=== PATIENT | female | born 1940 | race Caucasian/White ===

== ENCOUNTER 2023-02-07 09:43 | Inpatient (IN) ==
[2023-02-07] MEDS ORDERED: SODIUM CHLORIDE 0.9% 500 ML IV ONE (10:06)
[2023-02-07] MEDS ORDERED: ONDANSETRON INJ 2 MG/ML 2 ML VIAL IV STA (10:07)
--- NOTE | 2023-02-07 10:09 | Emergency Department Note ---
Impression & Plan GI bleed ED Provider Note Name: FLORINDA YOO Age: 82 Sex: Female Arrives Via: Walk-In Informant: Patient and daughter ED Provider: Benedict Sampson MD Chief Complaint: Bloody stools Impression: As per impressions above Medical Decision Making: Pleasant 82-year-old female with a history of Whipple surgery 13 years ago arrives for evaluation of black/bloody stools this morning. She does note a history of gastric ulcers. Symptoms are associated with stomach feeling settled and some dry heaving earlier. She has a soft nontender abdomen. Laboratory workup remarkable for mildly elevated white blood cell count and not significantly anemic at this time. Given elevated white count a CT abdomen pelvis was obtained which is unremarkable. Laboratory workup otherwise is benign. Given acute GI bleed in 82-year-old female I think hospitalization is reasonable especially given known ulcerative disease previously. She was given some IV Protonix and hospitalist consulted for further management. Triage/Nursing Notes reviewed by Me Differential:Diverticulosis, AVM, coagulopathy, colitis, inflammatory bowel disease, malignancy, Luci-Denney tear, esophagitis, peptic ulcer disease, variceal bleed, gastritis, epistaxis, fissure, hemorrhoids, as well as other pathologies. Vital Signs: reviewed and remarkable for mild tachy Interventions: Normal Saline bolus 1 L IV, Zofran 4 mg IV, Protonix 80 mg IV Labs:ED labs Reviewed by me and remarkable for elevated wbc Imaging:CT abdomen pelvis with IV contrast as per my interpretation no acute abnormalities including no evidence of obstruction, free air, abscess nor diverticulitis. Confirmed by radiologist see the report for full. Consults:[facility] Hospitalist Plan: Disposition:Hospitalization Condition: Good History of Present Illness: 82-year-old female arrives for evaluation of abdominal pain. Patient notes increasing abdominal pain throughout the morning. She went to the bathroom and noticed black/bloody/tarry stools. Notes hyperactive bowels. Mild associated nausea and did have an episode of dry heaving earlier. Denies any current abdominal or back pain and just notes that her stomach feels unsettled. Denies any chest pain, fevers, chills, shortness of breath, leg swelling, rashes, other bleeding/bruising, headache, neck pain or other concerning signs or symptoms. 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 She notes a history of periodic GI bleeds and this is somewhat similar. Does not take any blood thinners nor aspirin. She does take Pepcid daily. Past Medical History:See Below Home Medications:See Below Allergies: Aspirin and morphine Vitals:Blood Pressure: 117/71, Pulse 104, RR 20, T 36.4C, O2 94% on RA Physical Exam: GENERAL: Patient is tired/mildly dehydrated appearing and in minimal distress. RESPIRATORY: No dyspnea. Clear to auscultation and equal bilaterally. CARDIOVASCULAR: Regular rate and rhythm.No murmur appreciated. GASTROINTESTINAL: Abdomen soft, non-tender, no peritonitis. EXTREMITIES: Normal motion all extremities, no cyanosis, no edema. NEUROLOGIC: Alert and oriented. No focal neurologic deficits appreciated SKIN: No rash, no jaundice, no diaphoresis. PSYCH: Appropriate GCS: 15 ED Course: Times/Reassessments: Patient does seem to be feeling better after some IV fluids and Zofran. Agreeable to hospitalization Benedict Sampson MD Past Med/Surg History Medical History Hypertension Hypothyroidism Surgical History No pertinent past surgical history Social History Smoking Status: Never smoker Second Hand Exposure: No; Do You Dip or Chew Tobacco: No; Tobacco Cessation Education Requested by Patient: No Hx Alcohol Use: No Hx Substance Use: No Preferred Language: Haitian Communication Ability: Effective Waist Fitter Required: No Beliefs That Will Affect Care: None Current Living Situation: Family Other Information That Helps Us Care for You: No Feels Safe at Home: Yes Safety Concerns: Feels Safe At This Time Assistive Devices: Denture - Upper, Denture - Lower and Glasses Allergies Allergies Allergy/AdvReac Type Severity Reaction Status Date / Time aspirin Allergy Bleeding Unverified 02/07/23 12:38 tendency morphine Allergy Vomiting Unverified 02/07/23 12:38 Home Meds Home Medications Medication Instructions Recorded Confirmed ascorbic acid (vitamin C) 500 mg 500 mg PO QAM 04/28/21 02/07/23 tablet calcium carb 300 mg-D3 20 mcg-mag 1 tab PO BID 04/28/21 02/07/23 ox 25 mg-endoscopy technican 0.5 [id number] tablet (Caltrate-D3 Plus Minerals) levothyroxine 50 mcg tablet 50 mcg PO QDB 04/28/21 02/07/23 multivitamin 1 tab PO QDL 04/28/21 02/07/23 omega 2-yvk-aku-fish oil 1,200 mg 1 cap PO DAILY@1800 04/28/21 02/07/23 (144 mg-216 mg) capsule (Fish Oil) Results & Data (ED) Vital Signs Vital Signs - 24 hr 02/07/23 09:44 02/07/23 10:36 02/07/23 11:57 Temperature 36.4 C L Temperature Source Skin Pulse Rate 104 H 91 H Pulse Rate [Apical] 96 H Pulse Rhythm Regular Pulse Strength Normal Respiratory Rate 20 19 Respiratory Effort / Characteristics Non-Labored Spontaneous Respiratory Depth Normal Respiratory Pattern Regular Blood Pressure 117/71 Blood Pressure [Left Arm] 110/68 Blood Pressure Mean 86 Blood Pressure Mean [Left Arm] 82 Blood Pressure Position [Left Arm] Pulse Oximetry 94 91 Oxygen Delivery Method Room Air Room Air Oxygen Flow Rate Sepsis Recent Fever Within 48 Hours No Sepsis New/Unexplained Change in Mental Status N/A Sepsis Action Taken by Nursing No Action Required 02/07/23 13:29 02/07/23 13:29 02/07/23 13:29 Temperature 36.6 C 36.6 C Temperature Source Oral Oral Pulse Rate Pulse Rate [Apical] 86 87 Pulse Rhythm Pulse Strength Respiratory Rate 20 20 Respiratory Effort / Characteristics Non-Labored Respiratory Depth Normal Respiratory Pattern Blood Pressure Blood Pressure [Left Arm] 121/76 121/76 Blood Pressure Mean Blood Pressure Mean [Left Arm] 91 91 Blood Pressure Position [Left Arm] Lying Pulse Oximetry 86 L 95 Oxygen Delivery Method Room Air Nasal Cannula Nasal Cannula Oxygen Flow Rate 3 3 Sepsis Recent Fever Within 48 Hours Sepsis New/Unexplained Change in Mental Status Sepsis Action Taken by Nursing Laboratory Data 02/07/23 10:10 02/07/23 10:10 Lab Results 02/07/23 Range/Units 10:10 WBC 14.62 H (4.8-10.8) K/ul RBC 3.92 L (4.20-5.40) M/uL Hgb 11.6 L (12.0-16.0) g/dl Hct 36.5 L (37.0-47.0) % MCV 93.1 (80.0-100.0) fL MCH 29.6 (25.0-34.0) pg MCHC 31.8 L (32.0-36.0) g/dL RDW Std Deviation 50.8 H (36.4-46.3) fL RDW Coeff of Allan 14.8 H (11.5-14.5) % Plt Count 264 (130-400) K/uL MPV 10.0 (9.4-12.4) fL Immature Gran % (Auto) 0.4 % Neut % (Auto) 76.9 % Lymph % (Auto) 15.8 % Ellis % (Auto) 6.2 % Eos % (Auto) 0.3 % Baso % (Auto) 0.4 % Neut # (Auto) 11.24 H (1.40-6.50) K/uL Lymph # (Auto) 2.31 (1.20-3.40) K/uL Ellis # (Auto) 0.90 H (0.11-0.59) K/uL Eos # (Auto) 0.05 (0.00-0.50) K/uL Baso # (Auto) 0.06 (0.00-0.20) K/uL Immature Gran # (Auto) 0.06 (0.01-0.20) K/uL PT 11.7 (9.0-12.0) Seconds INR 1.1 (0.9-1.1) APTT 26 (21-31) Seconds PTT Ratio 0.9 Sodium 139 (136-145) mmol/L Potassium 4.7 (3.5-5.1) mmol/L Chloride 107 (98-107) mmol/L Carbon Dioxide 25 (21-32) mmol/L Anion Gap 7 (3-11) BUN 41 H (6-23) mg/dl Creatinine 0.85 (0.6-1.2) mg/dl Est Cr Clr Drug Dosing 39.8 ml/min Est GFR ( Amer) 75.0 ml/min Est GFR (Non-Af Amer) 64.7 ml/min BUN/Creatinine Ratio 48.2 H (10-20) Glucose 178 H (70-99(Fasting)) mg/dl Calcium 8.8 (8.6-10.3) mg/dl Magnesium 1.8 (1.7-2.4) mg/dl Total Bilirubin 0.8 (0.2-1.0) mg/dl Direct Bilirubin 0.1 (0-0.2) mg/dl AST 18 (13-39) U/L ALT 16 (7-52) U/L Alkaline Phosphatase 108 H (34-104) U/L Total Protein 6.6 (6.0-8.3) gm/dl Albumin 3.5 (3.4-5.0) gm/dl Lipase 4 L (11-82) U/L Administered Medications Discontinued Medications Sodium Chloride (Nss) 500 mls @ 999 mls/hr IV .Q31M ONE Stop: 02/07/23 10:36 Last Infusion: 02/07/23 10:56 Dose: Infused Documented By: Admin: 02/07/23 10:14 Dose: 999 mls/hr Documented By: SAHARA Pantoprazole Sodium 80 mg/ (Dextrose) 120 mls @ 480 mls/hr IV ONE STA Stop: 02/07/23 12:16 Last Infusion: 02/07/23 13:02 Dose: Infused Documented By: Admin: 02/07/23 12:24 Dose: 480 mls/hr Documented By: SAHARA Ioversol (Optiray 320 500ml) 94 ml IV ONCE ONE Stop: 02/07/23 11:26 Last Admin: 02/07/23 11:26 Dose: 94 ml Documented By: RADHA Ondansetron HCl (Ondansetron Inj 2 Mg/Ml 2 Ml Vial) 4 mg IV NOW STA Stop: 02/07/23 10:08 Last Admin: 02/07/23 10:14 Dose: 4 mg Documented By: SAHARA Imaging Data Radiologist's Impression: Abdomen/Pelvis CT 02/07/23 10:59 CT SCAN OF THE ABDOMEN AND PELVIS WITH IV CONTRAST CLINICAL HISTORY: GI bleeding. Hematochezia. COMPARISON STUDY: Abdominal CT dated 12/23/2009. TECHNIQUE: Following the IV administration of 94 cc of Optiray 320, CT scan of the abdomen and pelvis is performed from the lung bases to the proximal femora. Images are reviewed in the axial, sagittal, and coronal planes. IV contrast was administered without complication. A dose lowering technique was utilized adhering to the principles of ALARA. CT DOSE: 373.68 mGy.cm FINDINGS: Lung bases: The patient is status post midline sternotomy. The heart is enlarged and without pericardial effusion. The coronary arteries are densely calcified. There is aneurysmal dilatation of the partially visualized ascending thoracic aorta. This measures up to 4.9 cm in diameter. There is elevation of the left hemidiaphragm with bibasilar scarring/atelectasis. No airspace consolidation typical for pneumonia or pleural effusion is identified. Liver: The contrast-enhanced liver is normal in size, contour, and attenuation. Pneumobilia is noted. There is minimal intrahepatic biliary ductal dilatation. The hepatic veins and portal veins are patent. Gallbladder: Surgically absent. Spleen: Normal in size and attenuation. There are calcified splenic granulomas. Pancreas: There is postsurgical change from a prior Whipple's procedure the pancreatic head is absent. The pancreatic body and tail are markedly atrophic with dilatation of the main pancreatic duct. This measures up to 6 mm in diameter. Large intraductal calculi are seen near the pancreaticojejunostomy on image #100. Adrenal glands: Unremarkable. Kidneys: The contrast enhanced kidneys are normal in size and without hydronephrosis. Foci of cortical scarring are noted in the left kidney. The kidneys enhance symmetrically. Abdominal vasculature: There is advanced atherosclerotic calcification and ectasia of the abdominal aorta. The infrarenal abdominal aorta measures up to 2.8 cm in diameter. 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 Bowel: The distal stomach and duodenum are surgically absent with gastrojejunostomy. No bowel obstruction is seen. A ventral hernia contains a nonobstructed segment of the transverse colon. The appendix is not identified and reported surgically absent. There is mild colonic diverticulosis without CT evidence of acute diverticulitis. Peritoneum: There is no intraperitoneal free air or abdominal ascites. A large fat-containing ventral hernias in the right anterior pelvis on image #156. There is a bowel containing hernia in the upper abdomen seen on image #123. Lymphadenopathy: None. Pelvic viscera: The bladder is distended but otherwise normal as imaged. The uterus is surgically absent. No adnexal lesion is seen. Skeletal structures: The skeletal structures are osteopenic. There are age- indeterminate compression deformities of T11, T12, L1, and L3. Moderate lumbosacral spondylosis is observed. Degenerative sclerosis is noted in the pubic symphysis. No lytic or blastic lesions are seen. IMPRESSION: 1. No acute infectious or inflammatory findings are identified in the abdomen or pelvis. 2. There is postsurgical change consistent with a previous Whipple procedure. 3. There is aneurysmal dilatation of the partially visualized ascending thoracic aorta which measures up to 4.9 cm in diameter. Follow-up with vascular surgery is advised. 4. Cardiomegaly with advanced coronary artery atherosclerosis. 5. The residual pancreatic body and tail are markedly atrophic. Large intraductal calculi are seen above the pancreaticojejunostomy. 6. A ventral hernia contains a nonobstructed segment of the transverse colon. 7. 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 8. Bladder distention. 9. Additional findings as above. ACT 112: Positive. There are findings on this exam that require communication between the performing entity and the patient following Patient Test Result Information Act ([place] Act 112) guidelines. Electronically signed by: Agustin Braga M.D. 02/07/2023 11:47 AM Discharge Plan Visit Data Chief Complaint: Rectal Bleed Stated Complaint: RECTAL BLEED, WEAKNESS, HIGH BP ED Provider: Benedict Sampson Discharge Problem: GI bleed Forms Stand Alone Forms: [facility] [place] appiris Prescriptions Prescriptions: No Action multivitamin Tablet 1 tab PO QDL ascorbic acid (vitamin C) 500 mg Tablet 500 mg PO QAM levothyroxine 50 mcg tablet 50 mcg PO QDB omega 5-uvp-jlq-fish oil [Fish Oil] 1,200 (144-216) mg Capsule 1 cap PO DAILY@1800 Caltrate-D3 Plus Minerals 300 mg-800 unit -25 mg-0.5 mg Tablet 1 tab PO BID Referrals Referrals: Azael Thrasher MD [Primary Care Provider] - Discharge Problem: GI bleed Qualifiers: GI bleed type/associated pathology: melena Qualified Code(s): K92.1 - Melena
[2023-02-07 10:28] LABS: Basophils # (auto) 0.06 K/uL (0.00-0.20); Basophils % (auto) 0.4 %; Eosinophils # (auto) 0.05 K/uL (0.00-0.50); Eosinophils % (auto) 0.3 %; Hematocrit (blood only) 36.5 % (37.0-47.0); Hemoglobin 11.6 g/dl (12.0-16.0); Immature Granulocytes # (auto) 0.06 K/uL (0.01-0.20); Immature Granulocytes % (auto) 0.4 %; Lymphocytes # (auto) 2.31 K/uL (1.20-3.40); Lymphocytes % (auto) 15.8 %; Mean Corpuscular Hemoglobin 29.6 pg (25.0-34.0); Mean Corpuscular Hgb Conc 31.8 g/dL (32.0-36.0); Mean Corpuscular Volume 93.1 fL (80.0-100.0); Monocytes % (auto) 6.2 %; Neutrophils # (auto) 11.24 K/uL (1.40-6.50); Neutrophils % (auto) 76.9 %; Platelet Count 264 K/uL (130-400); RDW Coefficient of Variation 14.8 % (11.5-14.5); RDW Standard Deviation 50.8 fL (36.4-46.3); Red Blood Count 3.92 M/uL (4.20-5.40); White Blood Count 14.62 K/ul (4.8-10.8)
[2023-02-07 10:47] LABS: Albumin Level 3.5 gm/dl (3.4-5.0); BUN Creatinine Ratio 48.2 (10-20); Bilirubin Direct 0.1 mg/dl (0-0.2); Bilirubin,Total 0.8 mg/dl (0.2-1.0); Calcium 8.8 mg/dl (8.6-10.3); Creatinine Clr Calc Pharmacy 39.8 ml/min; Est GFR (Non-African American) 64.7 ml/min; Magnesium 1.8 mg/dl (1.7-2.4); Potassium 4.7 mmol/L (3.5-5.1); Total Protein 6.6 gm/dl (6.0-8.3)
[2023-02-07 11:10] LABS: INR 1.1 (0.9-1.1); Partial Thromboplastin Ratio 0.9; Partial Thromboplastin Time 26 Seconds (21-31); Prothrombin Time 11.7 Seconds (9.0-12.0)
[2023-02-07] MEDS ORDERED: OPTIRAY 320 500ml IV ONE (11:25)
--- NOTE | 2023-02-07 11:48 | CT Scan Report ---
CT SCAN OF THE ABDOMEN AND PELVIS WITH IV CONTRAST CLINICAL HISTORY: GI bleeding. Hematochezia. COMPARISON STUDY: Abdominal CT dated 12/23/2009. TECHNIQUE: Following the IV administration of 94 cc of Optiray 320, CT scan of the abdomen and pelvi s is performed from the lung bases to the proximal femora. Images are reviewed in the axial, sagittal , and coronal planes. IV contrast was administered without complication. A dose lowering technique wa s utilized adhering to the principles of ALARA. CT DOSE: 373.68 mGy.cm FINDINGS: Lung bases: The patient is status post midline sternotomy. The heart is enlarged and without pericard ial effusion. The coronary arteries are densely calcified. There is aneurysmal dilatation of the part ially visualized ascending thoracic aorta. This measures up to 4.9 cm in diameter. There is elevation of the left hemidiaphragm with bibasilar scarring/atelectasis. No airspace consolidation typical for pneumonia or pleural effusion is identified. Liver: The contrast-enhanced liver is normal in size, contour, and attenuation. Pneumobilia is noted. There is minimal intrahepatic biliary ductal dilatation. The hepatic veins and portal veins are lee nt. Gallbladder: Surgically absent. Spleen: Normal in size and attenuation. There are calcified splenic granulomas. Pancreas: There is postsurgical change from a prior Whipple's procedure the pancreatic head is absent . The pancreatic body and tail are markedly atrophic with dilatation of the main pancreatic duct. Thi s measures up to 6 mm in diameter. Large intraductal calculi are seen near the pancreaticojejunostomy on image #100. Adrenal glands: Unremarkable. Kidneys: The contrast enhanced kidneys are normal in size and without hydronephrosis. Foci of cortica l scarring are noted in the left kidney. The kidneys enhance symmetrically. Abdominal vasculature: There is advanced atherosclerotic calcification and ectasia of the abdominal a arlin. The infrarenal abdominal aorta measures up to 2.8 cm in diameter. There is an aneurysm of the r ight common iliac artery which measures up to 2.6 cm. Bowel: The distal stomach and duodenum are surgically absent with gastrojejunostomy. No bowel obstruc tion is seen. A ventral hernia contains a nonobstructed segment of the transverse colon. The appendix is not identified and reported surgically absent. There is mild colonic diverticulosis without CT ev idence of acute diverticulitis. Peritoneum: There is no intraperitoneal free air or abdominal ascites. A large fat-containing ventral hernias in the right anterior pelvis on image #156. There is a bowel containing hernia in the upper abdomen seen on image #123. Lymphadenopathy: None. Pelvic viscera: The bladder is distended but otherwise normal as imaged. The uterus is surgically abs ent. No adnexal lesion is seen. Skeletal structures: The skeletal structures are osteopenic. There are age-indeterminate compression deformities of T11, T12, L1, and L3. Moderate lumbosacral spondylosis is observed. Degenerative scler osis is noted in the pubic symphysis. No lytic or blastic lesions are seen. IMPRESSION: 1. No acute infectious or inflammatory findings are identified in the abdomen or pelvis. 2. There is postsurgical change consistent with a previous Whipple procedure. 3. There is aneurysmal dilatation of the partially visualized ascending thoracic aorta which measures up to 4.9 cm in diameter. Follow-up with vascular surgery is advised. 4. Cardiomegaly with advanced coronary artery atherosclerosis. 5. The residual pancreatic body and tail are markedly atrophic. Large intraductal calculi are seen ab ove the pancreaticojejunostomy. 6. A ventral hernia contains a nonobstructed segment of the transverse colon. 7. 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 8. Bladder distention. 9. Additional findings as above. ACT 112: Positive. There are findings on this exam that require communication between the performing entity and the patient following Patient Test Result Information Act ([place] Act 112) guidelines. Electronically signed by: Agustin Braga M.D. 02/07/2023 11:47 AM
[2023-02-07] MEDS ORDERED: PANTOprazole 80 MG in DEXTROSE 5% 100 ML IV STA (12:02)
--- OUTSIDE RECORDS SUMMARY | 2023-02-07 13:13 | External Medical Summary | Summary of Care ---
Author Name Unknown Organization [facility] Address [address] [place] [address] Phone [phone] Care Team Providers Care Pourer Crane Ladle Name Role Phone Azael Thrasher MD Primary Care Provider +1- [phone] Reason for Visit * Reason Comments eRx-Medication Refill Encounter Details Date Type Department Care Team Description 09/20/[address] [facility] [address] [place] [address] Azael Thrasher MD [address] [place] [address] Allergies Active Allergy Reactions Severity Noted Date Comments Aspirin 10/23/2009 Morphine Sulfate Nausea/vomiting 10/23/2009 documented as of this encounter (statuses as of 09/21/2022) Medications Medication Sig Dispensed Refills Start Date End Date Status MULTI-VITAMIN PO TABS 1 daily 0 Active CALCIUM + D 600-200 MG-UNIT PO TABS 1 daily 0 Active VITAMIN C 500 MG PO TABS 1 daily 0 Active TYLENOL 325 MG PO TABS 1 every 4-6 hours as needed 0 Active Fish Oil 1000 MG Oral Capsule Take 1 Capsule by mouth in the morning. 0 Active Polyvinyl Alcohol 1.4 % Ophthalmic Solution (Tears Naturale II) Instill into both eyes 1 Drop in the morning AND 1 Drop at noon AND 1 Drop in the evening AND 1 Drop before bedtime. 15 mL 5 05/28/2021 Active hydroCHLOROthiazi de 12.5 MG Oral Tablet (Hydrodiuril) Take by mouth 1 Tablet in the morning. 90 Tablet 3 11/23/2021 Active Losartan Potassium 25 MG Oral Tablet (Cozaar)Indicatio ns:HTN, goal below 140/90 Take 1 Tablet by mouth in the morning. 90 Tablet 3 06/10/2022 Active Potassium Chloride ER 20 MEQ Oral Tablet Extended ReleaseIndication s:HTN, goal below 140/90 take 1 tablet by mouth every morning and 1 tablet by mouth BEFORE BEDTIME 180 Tablet 3 06/15/2022 Active Carbamide Peroxide 6.5 % Otic Solution (Debrox)Indicatio ns:Impacted cerumen of right ear Administer 5 Drops to the right ear in the morning and 5 Drops before bedtime. 15 mL 0 07/07/2022 Active Triamcinolone Acetonide 0.1 % External Cream (Aristocort)Indic ations:Rash and nonspecific skin eruption Apply topically to affected area 2 times a day. To affected area. 15 g 0 07/07/2022 Active Famotidine 20 MG Oral Tablet (Pepcid) Take by mouth 1 Tablet in the morning. 90 Tablet 3 09/07/2021 3 Discontinue d(Refill) Levothyroxine Sodium 50 MCG Oral Tablet (Levoxyl) Take by mouth 1 Tablet in the morning. (at least 30 min prior to breakfast or other meds). 90 Tablet 3 09/08/2021 3 Discontinue d(Refill) documented as of this encounter (statuses as of 09/21/2022) Active Problems Problem Noted Date Nonrheumatic aortic valve stenosis 11/23 Enlarged aorta 10/19/2021 Dyslipidemia, goal LDL below 100 022 Hypothyroidism 06/28/2021 Gastroesophageal reflux disease 06/29/19 HTN, goal below 140/90 06/28/2021 ADVANCE DIRECTIVE INFORMATION 06/16/2010 Overview: Yes, Patient instructed to provide copy of advance directive for provider to review and to be scanned into Electronic Medical Record documented as of this encounter (statuses as of 09/21/2022) Resolved Problems Problem Noted Date Resolved Date Gastrointestinal hemorrhage with melena 04/13/19 21 06/28/2021 Nausea with vomiting 01/28/2010 06/28/2021 Fever 01/28/2010 06/28/2021 Abdominal pain, generalized 01/28/2010 05/0 02/2021 Candidal vulvovaginitis 12/28/2009 06/29/19 22 Other postoperative infection 12/23/2009 Obstruction of duodenum 12/09/2009 06/29/19 22 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 documented as of this encounter (statuses as of 09/21/2022) Immunizations Name Administration Dates Next Due Pneumococcal Conjugate Vaccine, 20-valent (Prevn ar20) 12/24/2021 Seasonal Influenza, Quadrivalent Hd (Fluzone Hd) 12/24/2021 documented as of this encounter Social History Tobacco Use Types Packs/Day Years Used Date Smoking Tobacco: Never Smokeless Tobacco: Never Alcohol Use Standard Drinks/Week Comments No 0 (1 standard drink = 0.6 oz pur e alcohol) Food Insecurity Answer Date Recorded Within the past 12 months, y ou worried that your food would run out before you got money to buy more. Never true 06/25/2022 Within the past 12 months, t he food you bought just didn't last and you didn't have money to get more. Never true 06/25/2022 Sex Assigned at Date Recorded Not on file Job Start Date Occupation Industry Not on file Not on file Not on file documented as of this encounter Functional Status Functional Status Response Date of Assess ment Are you deaf or do you have serious difficulty h earing? No 04/13/2020 Are you blind or do you have serious difficulty seeing, even when wearing glasses? No 04/13/2020 Do you have serious difficul ty walking or climbing stairs? (5 years old or older) No 04/13/2020 Do you have difficulty dress ing or bathing? (5 years old or older) No 04/13/2020 Because of a physical, menta l, or emotional condition, do you have difficulty doing errands alone such as visiting a doctor s office or shopping? (15 years old or older) No 04/13/19 21 Cognitive Status Response Date of Assessm ent Because of a physical, menta l, or emotional condition, do you have serious difficulty concentrating, remembering, or making decisions? (5 years old or older No 04/13/2020 documented as of this encounter Plan of Treatment Upcoming Encounters Date Type Specialty Care Team Description 12/15/2022 Imaging Radiology 01/04/2023 Office Visit Family Medicine Azael Thrasher MD [address] [place] [address] 06/16/2023 Cardiac Studies Cardiac Studies 06/23/2023 Office Visit Cardiology Nancy Celis CRNP [address] [place] [address] Health Maintenance Due Date Last Done Comments DXA Scan 1942 COVID-19 Vaccine (#1) 02/15/1943 Albumin/Creatinine Ratio 1960 Zoster Vaccines (2 of 3) 12/27/2013 11/01/2013 Influenza Vaccine (FLU shot) (#1) 2022 12/24/2021, 12/14/2019, 11/24/2016, Additional history exists GFR 06/16/2023 06/15/2022, 04/30, 04/13/2021, Additional history exists TSH 06/16/2023 06/15/2022, 04/30, 03/30/2021 Depression Screening, Annual for Pts 12 and Over 06/26/2023 06/25/2022 DTaP,Tdap,and Td Vaccines (2 - Td or Tdap) 08/27/2025 08/28/2015 Pneumococcal Vaccine: 65+ Years Completed 12/24/2021 GARDASIL-HPV IMMUNIZATION SERIES Aged Out No longer eligible based on patient's age to complete this topic Hepatitis B Aged Out No longer eligi ble based on patient's age to complete this topic MENINGOCOCCAL (MENACTRA/MENVEO) Aged Out No longer eligible based on patient's age to complete this topic documented as of this encounter Medical Devices Implanted Type Area Medical Physics Teacher Device Identifier Shelf Expiration Date Model / Serial / Lot Stent Lim Geen [id number] Gpso-3-5 - [id number] Implanted:Qty: 1 on 12/09/2009 at [place] [facility] [place]: Abdomen JEREMY : GT LUNA 08/28/2012 [id number] / / [id number] documented as of this encounter Advance Directives Latest Code Status on File Code Status Date Activated Date Inactivated Comments No Code 04/13/2020 1:42 PM 04/19/2020 5:16 PM This order reflects the patients wishes and were consensually agreed upon. Question Answer Comments Discussion of Advance Directives occurred with: Patient Does the patient have a Living Will? Yes, not currently available Does the patient have Health Care Power of Supply Chain Development Manager? Yes, not currently available Code Status History Code Status Date Activated Date Inactivated Comments Full Code 01/28/2010 9:39 PM 02/02/2010 10:30 PM This order reflects the patients wishes and were consensually agreed upon. Question Answer Comments Discussion of Advance Directives occurred with: Patient Does the patient have a Living Will? No Does the patient have Health Care Power of Supply Chain Development Manager? No Full Code 01/25/2010 6:49 PM 01/27/2010 6:45 PM Thi s order reflects the patients wishes and were consensually agreed upon. Question Answer Comments Discussion of Advance Directives occurred with: Patient Does the patient have a Living Will? No Does the patient have Health Care Power of Supply Chain Development Manager? No Full Code 12/23/2009 12:29 PM 01/01/2010 10:01 PM Th is order reflects the patients wishes and were consensually agreed upon. Full Code 12/23/2009 8:11 AM 12/23/2009 12:29 PM Th is order reflects the patients wishes and were consensually agreed upon. Care Teams Pourer Crane Ladle Relationship Specialty Start Date End Date Azael Thrasher MD [address] [place] [address] PCP - General Family Medicine 10/19/21 documented as of this encounter
--- OUTSIDE RECORDS SUMMARY | 2023-02-07 13:13 | External Medical Summary | Summary of Care ---
Author Name Unknown Organization [facility] Address [address] [place] [address] Phone [phone] Care Team Providers Care Support Services Tech Name Role Phone Jacinto Browning MD Primary Care Provider [phone]- [phone] Reason for Visit * Reason Comments eRx-Medication Refill Encounter Details Date Type Department Care Team (Late st Contact Info) Description 12/24/2022 Refill [facility] [address] [place] [address] Ambrosio Admas MD [address] [place] [address] Rash and nonspecific skin eruption Allergies Active Allergy Reactions Criticality Noted Date Comments Aspirin 10/23/2009 Morphine Sulfate Nausea/vomiting 10/23/2009 documented as of this encounter (statuses as of 12/24/2022) Medications Medication Sig Dispensed Refills Start Date [...] before bedtime. 15 mL 0 07/07/2022 Active Levothyroxine Sodium 50 MCG Oral Tablet (Levoxyl) Take 1 Tablet by mouth in the morning. (at least 30 min prior to breakfast or other meds). 90 Tablet 3 09/21/2022 Active Famotidine 20 MG Oral Tablet (Pepcid) Take 1 Tablet by mouth in the morning. 90 Tablet 3 09/21/2022 Active Triamcinolone Acetonide 0.1 % External Cream (Aristocort)Indic ations:Rash and nonspecific skin eruption APPLY TO AFFECTED AREA 2 TIMES A DAY 15 g 0 12/24/2022 Active Triamcinolone Acetonide 0.1 % External Cream (Aristocort)Indic ations:Rash and nonspecific skin eruption Apply topically to affected area 2 times a day. To affected area. 15 g 0 07/07/2022 Discontinued documented as of this encounter (statuses as of 12/24/2022) Active Problems Problem Noted Date Diagnosed Date Nonrheumatic aortic valve stenosis 11/23/2021 Enlarged aorta 10/19/2021 Dyslipidemia, goal LDL below 100 10/19/2021 Hypothyroidism 06/28/2021 Gastroesophageal reflux disease 06/28/2021 HTN, goal below 140/90 06/28/2021 ADVANCE DIRECTIVE INFORMATION 06/16/2010 Overview: Yes, Patient instructed to provide copy of advance directive for provider to review and to be scanned into Electronic Medical Record documented as of this encounter (statuses as of 12/24/2022) Resolved Problems Problem Noted Date Diagnosed Date Resolved Date Gastrointestinal hemorrhage with melena 04/13/2020 06/28/2021 Nausea with vomiting 01/28/2010 022 Fever 01/28/2010 06/28/2021 Abdominal pain, generalized 01/28/2010 06/28/2021 Candidal vulvovaginitis 12/28/20090 02/2021 Other postoperative infection 12/23/2009 06/28/2021 Obstruction of duodenum 12/09/200902/2021 UNCERTAIN BEHAVIOR - NEOPLASM SMALL INTESTINE 11/11/19 10 06/28/2021 documented as of this encounter (statuses as of 12/24/2022) Immunizations Name Administration Dates Next Due Pneumococcal Conjugate Vaccine, 20-valent (Prevn ar20) 12/24/2021 Seasonal Influenza, Quadrivalent Hd (Fluzone Hd) 12/24/2021 documented as of this encounter Social History Tobacco Use Types Packs/Day Years Used Date Smoking Tobacco: Never Smokeless Tobacco: Never Alcohol Use Standard Drinks/Week Comments No 0 (1 standard drink = 0.6 oz pur e alcohol) PHQ-2 Answer Date Recorded PHQ Adult Total Score 0 06/25/2022 Hunger Vital Sign Answer Date Recorded Within the past 12 months, y ou worried that your food would run out before you got the money to buy more. Never true 06/26/19 23 Within the past 12 months, t he food you bought just didn't last and you didn't have money to get more. Never true 06/25/2022 Sex and Gender Information Value Date Recorded Sex Assigned at Not on file Gender Identity Not on file Sexual Orientation Not on file Job Start Date Occupation [...] No 04/13/2020 documented as of this encounter Miscellaneous Notes * Telephone Encounter - Jacinto Browning MD - 12/24/2022 2:40 PM EDTSigned Prescriptions: Disp Refills Triamcinolone Acetonide 0.1 % External Cre*15 g 0 Sig: APPLY TO AFFECTED AREA 2 TIMES A DAYAuthorizing Provider: JACINTO BROWNING * Telephone Encounter - Violette Parham [facility] - 12/24/2022 2:19 PM EDTPending Prescriptions: Disp Refills Triamcinolone Acetonide 0.1 % External Cre*15 g 0 Sig: APPLY TO AFFECTED AREA 2 TIMES A DAY * Telephone Encounter - Violette Parham RP - 12/24/2022 2:18 PM EDT Did you pend patient's preferred pharmacy and medication before forwarding?yes Pharmacy: [id number] [facility] Pending Prescriptions: Disp Refills Triamcinolone Acetonide 0.1 % External Cr*15 g 0 Sig: APPLY TO AFFECTED AREA 2 TIMES A DAY Last Visit: 07/07/2022 (in office), Visit date not found (telemedicine) Next Visit: 01/04/2023 If no future appointments scheduled, and last appointment is greater than a year ago, please schedule patient for a follow-up appointment Last date the medication was ordered: 07/07/22 Is this request for a controlled substance?No Urine Drug Screen:No results found for this or any previous visit. Patient Phone Numbers Labs: Lab Results Component Value Date/Time CREAT 0.9 06/15/2022 11:35 AM CREAT 0.6 (L) 02/16/2010 03:40 AM POTASSIUM 3.9 06/15/2022 11:35 AM POTASSIUM 4.1 02/16/2010 03:40 AM TSH 3.06 06/15/2022 11:35 AM LDLCALC 66 06/15/2022 11:35 AM ALT 17 06/15/2022 11:35 AM ALT 15 01/25/2010 02:51 PM documented in this encounter Plan of Treatment Upcoming Encounters Date Type Department Care Team (Late st Contact Info) Description 01/04/2023 9:20 AM EST Office Visit [facility] [address] [facility] [place] [address] [facility]into Browning [facility] [address] [facility] [address] 06/13/2023 12:30 PM EDT Imaging Radiology [facility] [address] [place] [address] 06/16/2023 11:00 AM EDT Cardiac Studies Cardiac Studies, [address] [place] [address] 06/23/2023 11:00 AM EDT Office Visit Cardiology, [facility] [address] [place] [address] Nancy Celis CRNP [address] [place] [address] Health Maintenance Due Date Last Done Comments DXA Scan 1942 COVID-19 Vaccine (#1) 02/15/1943 Albumin/Creatinine Ratio 1960 Zoster Vaccines (2 of 3) 12/27/2013 11/01/2013 Influenza Vaccine (FLU shot) (#1) 2022 12/24/2021, 12/14/2019, 11/24/2016, Additional history exists GFR 06/16/2023 06/15/2022, 04/30, 04/13/2021, Additional history exists TSH 06/16/2023 06/15/2022, 04/30, 03/30/2021 Depression Screening 06/26/2023 06/25/2022 DTaP,Tdap,and Td Vaccines (2 - [...] this encounter Medical Devices Implanted Type Area Graduate Nurse Device Identifier Shelf Expiration Date Model / Serial / Lot Stent Lim Geen 3frx5 Gpso-3-5 - [id number] [place]planted:Q[place]: 1 [place] [facility] [place] Abdomen JEREMY : GT LUNA 08/28/2012 [id number] / / [id number] documented as of this encounter Visit Diagnoses Diagnosis Rash and nonspecific skin eruption Rash and other nonspecific skin eruption documented in this encounter Advance Directives Latest Code Status [...] the patient have Health Care Power of Hotel Baggage Handler? Yes, not currently available Code Status History Code Status Date Activated Date Inactivated Comments Full Code 01/28/2010 9:39 PM 02/02/2010 10:30 PM This order reflects the patients wishes and were consensually agreed upon. Question Answer Comments Discussion of Advance Directives occurred with: Patient Does the patient have a Living Will? No Does the patient have Health Care Power of Hotel Baggage Handler? No Full Code 01/25/2010 6:49 PM 01/27/2010 6:45 PM Thi s order reflects the patients wishes and were consensually agreed upon. Question Answer Comments Discussion of Advance Directives occurred with: Patient Does the patient have a Living Will? No Does the patient have Health Care Power of Hotel Baggage Handler? No Full Code 12/23/2009 12:29 PM 01/01/2010 10:01 PM Th is order reflects the patients wishes and were consensually agreed upon. Full Code 12/23/2009 8:11 AM 12/23/2009 12:29 PM Th is order reflects the patients wishes and were consensually agreed upon. Care Teams Support Services Tech Relationship Specialty Start Date End Date Jacinto Browning MD [address] [place] [address] PCP - General Family Medicine 10/19/21 documented as of this encounter
--- OUTSIDE RECORDS SUMMARY | 2023-02-07 13:13 | External Medical Summary | Summary of Care ---
Author Name Unknown Organization [facility] Address [address] [place] [address] Phone [phone] Care Team Providers Care Waxer Name Role Phone Azael Thrasher MD Primary Care Provider +1- [phone] Reason for Visit * Reason Onset Date Comments Health Maintenance 10/22/2022 Encounter Details Date Type Department Care Team Description 10/22/2022 Telephone [facility] [address] [place] [address] Azael Thrasher MD [address] [place] [address] Health Maintenance Allergies Active Allergy Reactions Severity Noted Date Comments Aspirin 10/23/2009 Morphine Sulfate Nausea/vomiting 10/23/2009 documented as of this encounter (statuses as of 10/22/2022) Medications Medication Sig Dispensed Refills Start Date [...] before bedtime. 15 mL 5 05/28/2021 Active hydroCHLOROthiazide 12.5 MG Oral Tablet (Hydrodiuril) Take by mouth 1 Tablet in the morning. 90 Tablet 3 11/23/2021 Active Losartan Potassium 25 MG Oral Tablet (Cozaar)Indications :HTN, goal below 140/90 Take 1 Tablet by mouth in the morning. 90 Tablet 3 06/10/2022 Active Potassium Chloride ER 20 MEQ Oral Tablet Extended ReleaseIndications: HTN, goal below 140/90 take 1 tablet by mouth every morning and 1 tablet by mouth BEFORE BEDTIME 180 Tablet 3 06/15/2022 Active Carbamide Peroxide 6.5 % Otic Solution (Debrox)Indications :Impacted cerumen of right ear Administer 5 Drops to the right ear in the morning and 5 Drops before bedtime. 15 mL 0 07/07/2022 Active Triamcinolone Acetonide 0.1 % External Cream (Aristocort)Indicat ions:Rash and nonspecific skin eruption Apply topically to affected area 2 times a day. To affected area. 15 g 0 07/07/2022 Active Levothyroxine Sodium 50 MCG Oral Tablet (Levoxyl) Take 1 Tablet by mouth in the morning. (at least 30 min prior to breakfast or other meds). 90 Tablet 3 09/21/2022 Active Famotidine 20 MG Oral Tablet (Pepcid) Take 1 Tablet by mouth in the morning. 90 Tablet 3 09/21/2022 Active documented as of this encounter (statuses as of 10/22/2022) Active Problems Problem Noted Date Nonrheumatic aortic [...] as of this encounter (statuses as of 10/22/2022) Resolved Problems Problem Noted Date Resolved Date Gastrointestinal hemorrhage with melena 04/13/19 21 06/28/2021 Nausea with vomiting 01/28/2010 06/28/2021 Fever 01/28/2010 06/28/2021 Abdominal pain, generalized 01/28/2010 05/02/2021 Candidal vulvovaginitis 12/28/2009 06/29/19 22 Other postoperative infection 12/23/2009 Obstruction of duodenum 12/09/2009 06/29/19 22 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 documented as of this encounter (statuses as of 10/22/2022) Immunizations Name Administration Dates Next Due Pneumococcal [...] (15 years old or older) No 04/13/19 Cognitive Status Response Date of Assessm ent Because of a physical, menta l, or emotional condition, do you have serious difficulty concentrating, remembering, or making decisions? (5 years old or older No 04/13/2020 documented as of this encounter Miscellaneous Notes * Telephone Encounter - Samreen Lawton LPN - 10/22/2022 12:23 PM EDT Care Gaps Comprehensive Care Outreach Last Office/Telemedicine Visit: 07/07/2022 (in office), Visit date not found (telemedicine) Next Office Visit: 01/04/2023 Hemoglobin AIC Results: No results found for: HEMOGLOBIN A1C Reviewed Health Maintenance below: Health Maintenance Topic Date Due DXA Scan Never done COVID-19 Vaccine (1) Never done Albumin/Creatinine Ratio Never done Zoster Vaccines (2 of 3) 12/27/2013 Awv declined Dexa [facility] in the past will talk to pcp Care Gap Outreach Action Taken: Spoke to patient documented in this encounter Plan of Treatment Upcoming Encounters Date Type Specialty Care Team Description 12/15/2022 Imaging Radiology 01/04/2023 Office Visit Family Medicine Azael Thrasher MD [address] [place] [address] 06/16/2023 Cardiac Studies Cardiac Studies 06/23/2023 Office Visit Cardiology Nancy Celis CRNP [address] [place] [address] Health Maintenance Due Date Last Done Comments [...] this encounter Medical Devices Implanted Type Area Loan Servicing Representative Device Identifier Shelf Expiration Date Model / Serial / Lot Stent Raphael Mayer 3frx5 Gpso-3-5 - [id number] Implanted:Qty: 1 on 12/09/2009 [place] [facility] [place] Abdomen COOK : GT LUNA 08/28/2012 [id number] / / [id number] documented as of this encounter Advance Directives [...] the patient have Health Care Power of Academic Assistant? Yes, not currently available Code Status History Code Status Date Activated Date Inactivated Comments Full Code 01/28/2010 9:39 PM 02/02/2010 10:30 PM This order reflects the patients wishes and were consensually agreed upon. Question Answer Comments Discussion of Advance Directives occurred with: Patient Does the patient have a Living Will? No Does the patient have Health Care Power of Academic Assistant? No Full Code 01/25/2010 6:49 PM 01/27/2010 6:45 PM Thi s order reflects the patients wishes and were consensually agreed upon. Question Answer Comments Discussion of Advance Directives occurred with: Patient Does the patient have a Living Will? No Does the patient have Health Care Power of Academic Assistant? No Full Code 12/23/2009 12:29 PM 01/01/2010 10:01 PM Th is order reflects the patients wishes and were consensually agreed upon. Full Code 12/23/2009 8:11 AM 12/23/2009 12:29 PM Th is order reflects the patients wishes and were consensually agreed upon. Care Teams Waxer Relationship Specialty Start Date End Date Azael Thrasher MD [address] [place] [address] PCP - General Family Medicine 10/19/21 documented as of this encounter
--- OUTSIDE RECORDS SUMMARY | 2023-02-07 13:13 | External Medical Summary | Summary of Care ---
Author Name Unknown Organization [facility] Address [address] [facility] [address] Phone [phone] Care Team Providers Care Procurement Clerk Name Role Phone Azael Thrasher MD Primary Care Provider [phone]- [phone] Reason for Referral * Precert (Within 10 days (routine)) - Pending Review Specialty Diagnoses / Procedures Referred By Héctor t Referred To Contact Radiology Diagnoses Enlarged aorta (HCC) Procedures CT CHEST WO CONTRAST Nancy Celis CRNP [address] [place] [id number] Referral ID Status Reason Start Date Expiration Date V isits Requested Visits Authorized [id number] Pending Review 06/19/2023 999 999 Reason for Visit * Reason Onset Date Comments Test Results 12/18/2022 Encounter Details Date Type Department Care Team (Late st Contact Info) Description 12/18/2022 Telephone Cardiology, [facility] [address] [place] [address] Nancy Celis CRNP [address] [place] [id number] Test Results Allergies Active Allergy Reactions Criticality Noted Date Comments Aspirin 10/23/2009 Morphine Sulfate Nausea/vomiting 10/23/2009 documented as of this encounter (statuses as of 12/20/2022) Medications Medication Sig Dispensed Refills Start Date [...] as of this encounter (statuses as of 12/20/2022) Active Problems Problem Noted Date Diagnosed Date [...] as of this encounter (statuses as of 12/20/2022) Resolved Problems Problem Noted Date Diagnosed Date Resolved Date Gastrointestinal hemorrhage with melena 04/13/2020 06/28/2021 Nausea with vomiting 01/28/2010 022 Fever 01/28/2010 06/28/2021 Abdominal pain, generalized 01/28/2010 06/28/2021 Candidal vulvovaginitis 12/28/2009 050 02/2021 Other postoperative infection 12/23/2009 06/28/2021 Obstruction of duodenum 12/09/2009 05/0 02/2021 UNCERTAIN BEHAVIOR - NEOPLASM SMALL INTESTINE 11/11/19 10 06/28/2021 documented as of this encounter (statuses as of 12/20/2022) Immunizations Name Administration Dates Next Due Pneumococcal [...] encounter Miscellaneous Notes * Telephone Encounter - CHARLY Hill - 12/20/2022 8:39 AM EDT Spoke with Pt, chest CT scheduled for May. * Telephone Encounter - Paty Jones LPN - 12/18/2022 1:31 PM EDT Mychart * Telephone Encounter - Paty Jones LPN - 12/18/2022 1:30 PM EDT ----- Message from LUIS Reid sent at 12/17/2022 12:32 PM EDT ----- Aneurysmal dilation of the ascending aorta measuring up to 4.9 cm, stable compared to prior CT in 2020. No changes needed at this time. Avoid bearing down and heavy lifting. Repeat CT of the chest without contrast in 6 months prior to follow-up. documented in this encounter Plan of Treatment Upcoming Encounters Date Type Department Care Team (Late st Contact Info) Description 01/04/2023 9:20 AM EST Office Visit [facility] [address] [facility] [phone] Azael Thrasher MD [address] [facility] [address] 06/13/2023 12:30 PM EDT Imaging Radiology [facility] 1st Floor, [place] [address] [facility] [place] [address] 06/16/2023 11:00 AM EDT Cardiac Studies Cardiac Studies, [facility] [address] [facility] [place] [address] 06/23/2023 11:00 AM EDT Office Visit Cardiology, [facility] [address] [facility] [place] [address] Nancy Celis CR[facility] [address] [facility] [place] [address] Scheduled Orders Name Type Priority Associated Diagnoses Orde r Schedule CT CHEST WO CONTRAST Medical Imaging Routine Enlarged aorta (HCC) Expected: 06/19/2023 (Approximate), Expires: 01/19/2024 Health Maintenance Due Date Last Done Comments [...] this encounter Medical Devices Implanted Type Area Stone Rigger Device Identifier Shelf Expiration Date Model / Serial / Lot Stent Raphael Mayer [id number] Gpso-3-5 - [id number] Implanted:Qty: 1 on 12/09/[address] [facility] N/A: Abdomen COOK : GT LUNA 08/28/2012 [id number] / / [id number] documented as of this encounter Visit Diagnoses Diagnosis Enlarged aorta (HCC)- Primary Other specified disorders of arteries and arterioles Valvular heart disease Endocarditis, valve unspecified, unspecified cause documented in this encounter Advance Directives Latest [...] the patient have Health Care Power of Adult Basic Studies Teacher? Yes, not currently available Code Status History Code Status Date Activated Date Inactivated Comments Full Code 01/28/2010 9:39 PM 02/02/2010 10:30 PM This order reflects the patients wishes and were consensually agreed upon. Question Answer Comments Discussion of Advance Directives occurred with: Patient Does the patient have a Living Will? No Does the patient have Health Care Power of Adult Basic Studies Teacher? No Full Code 01/25/2010 6:49 PM 01/27/2010 6:45 PM Thi s order reflects the patients wishes and were consensually agreed upon. Question Answer Comments Discussion of Advance Directives occurred with: Patient Does the patient have a Living Will? No Does the patient have Health Care Power of Adult Basic Studies Teacher? No Full Code 12/23/2009 12:29 PM 01/01/2010 10:01 PM Th is order reflects the patients wishes and were consensually agreed upon. Full Code 12/23/2009 8:11 AM 12/23/2009 12:29 PM Th is order reflects the patients wishes and were consensually agreed upon. Care Teams Procurement Clerk Relationship Specialty Start Date End Date Azael Thrasher MD [address] [place] [facility] [place] [address] PCP - General Family Medicine 10/19/21 documented as of this encounter
--- OUTSIDE RECORDS SUMMARY | 2023-02-07 13:13 | External Medical Summary | Summary of Care ---
Author Name Unknown Organization [facility] Address [address] [place] [address] Phone [phone] Care Team Providers Care Graphics Artist Name Role Phone Azael Thrasher MD Primary Care Provider [phone]- [phone] Reason for Visit * Reason Comments Re-Check 6 month return Encounter Details Date Type Department Care Team (Late st Contact Info) Description 01/04/2023 9:20 AM EST Office Visit [facility] [address] [place] [address] Azael Thrasher MD [address] [place] [address] Age-related osteoporosis without current pathological fracture*; Acquired hypothyroidism; Dyslipidemia, goal LDL below 100; HTN, goal below 140/90; Gastroesophageal reflux disease, unspecified whether esophagitis present Allergies Active Allergy Reactions Criticality Noted Date Comments Aspirin 10/23/2009 Morphine Sulfate Nausea/vomiting 10/23/2009 documented as of this encounter (statuses as of 01/23/2023) Medications Medication Sig Dispensed Refills Start Date [...] before bedtime. 15 mL 5 05/28/2021 Active Potassium Chloride ER 20 MEQ Oral [...] A DAY 15 g 0 12/24/2022 Active hydroCHLOROthiazi de 12.5 MG Oral Tablet (Hydrodiuril) Take by mouth 1 Tablet in the morning. 90 Tablet 3 11/23/2021 3 Discontinue d(Medicatio n List Clean Up) Losartan Potassium 25 MG Oral Tablet (Cozaar)Indicatio ns:HTN, goal below 140/90 Take 1 Tablet by mouth in the morning. 90 Tablet 3 06/10/2022 3 Discontinue d(Medicatio n List Clean Up) documented as of this encounter (statuses as of 01/23/2023) Active Problems Problem Noted Date Diagnosed Date [...] as of this encounter (statuses as of 01/23/2023) Resolved Problems Problem Noted Date Diagnosed Date Resolved Date Gastrointestinal hemorrhage with melena 04/13/2020 06/28/2021 Nausea with vomiting 01/28/2010 022 Fever 01/28/2010 06/28/2021 Abdominal pain, generalized 01/28/2010 06/28/2021 Candidal vulvovaginitis 12/28/200902/2021 Other postoperative infection 12/23/2009 06/28/2021 Obstruction of duodenum 12/09/200902/2021 UNCERTAIN BEHAVIOR - NEOPLASM SMALL INTESTINE 11/11/19 10 06/28/2021 documented as of this encounter (statuses as of 01/23/2023) Immunizations Name Administration Dates Next Due Pneumococcal Conjugate Vacc, 13 Valent (Prevnar) 02/13/2015 Pneumococcal Conjugate Vaccine, 20-valent (Prevn ar20) 12/24/2021 Seasonal Influenza, Quadrivalent Hd (Fluzone Hd) 12/24/2021 TDAP (age 10 and older)(Boostrix) 04/28/2021 documented as of this encounter Social History Tobacco Use Types Packs/Day Years Used Date Smoking Tobacco: Never Smokeless Tobacco: Never Tobacco Cessation:Counseling Given: Not Answered Alcohol Use Standard Drinks/Week Comments No 0 [...] on file documented as of this encounter Last Filed Vital Signs Vital Sign Reading Time Taken Comments Blood Pressure 122/76 01/04/2023 9:09 AM EST Pulse 69 01/04/2023 9:09 AM EST Temperature 36.2 C (97.2 F) 01/04/2023 9:09 AM ES T Respiratory Rate 16 01/04/2023 9:09 AM EST Oxygen Saturation - - Inhaled Oxygen Concentration - - Weight 50.8 kg (112 lb) 01/04/2023 9:09 AM EST Height - - Body Mass Index 21.16 07/07/2022 8:27 AM EDT documented in this encounter Functional Status Functional Status Response [...] or making decisions? (5 years old or older) No 04/13/2020 documented as of this encounter Progress Notes * Azael Thrasher MD - 01/23/2023 4:48 PM EST Subjective: Lamin Woo is a 82 year old female here today for Chief Complaint Patient presents with Re-Check 6 month return Pt presents for routine recheck. She is tolerating her current meds. She is agreeable to dexa scan. Reviewed immun. She is aware that lab orders are in system for next labs. Denies chest pain, shortness of breath, cough, nausea, vomiting, abd pain, dysuria, urinary frequency, nocturia, fever, melena, hematochezia, peripheral edema. 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 S/P Whipple Other specified disorders of biliary tract 12/28/09 Bile Leak S/P Whipple - S/P repair Solitary cyst of breast benign, removed Symptoms involving abdomen and pelvis 12/28/09 Abdominal abscesses following Whipple - S/P OR drainage. Thoracic aortic aneurysm (HCC) 4.8 x 5.1 on 11/07 Past Surgical History: Procedure Laterality Date BREAST SURGERY PROCEDURE NEC 02/29/1988 CYST REMOVED COLONOSCOPY, DIAGNOSTIC (RECTUM) N/A 04/15/2020 poor prep/diverticulosis sigmoid colon/non-bleeding internal hemorrhoids/recall 3 months/COLONOSCOPY FLEXIBLE PROXIMAL DIAGNOSTIC performed by Tej Frederick MD at OR [facility] COLONOSCOPY, DIAGNOSTIC (RECTUM) N/A 07/22/2020 diverticulosis sigmoid and descending colon/non-bleeding internal hemorrhoids/COLONOSCOPY FLEXIBLE PROXIMAL DIAGNOSTIC performed by Tej Frederick MD at [facility] EGD, FLEXIBLE, DIAGNOSTIC N/A 04/14/2020 gastrojejunostomy found consistent with whipple's surgery/extensive jejunal diverticulosis/ESOPHAGOGASTRODUODENOSCOPY (EGD), FLEXIBLE, TRANSORAL, DIAGNOSTIC performed by Tej Frederick MD at OR [facility] EXPLORATION OF ABDOMEN 12/23/2009 EXPLORATORY LAPAROTOMY performed by BRYN LUNA at OR [facility] [place]. Exploratory laparotomy, abdominal washout, wide drainage of hepatojejunostomy site with cholangiogram. FOREARM/WRIST SURGERY NEC 02/28/2005 FRACTURED WRIST- RIGHT MISCELLANEOUS ORDER ([facility] ONLY) nasal surgery REMOVAL OF APPENDIX REMOVE PANCREAS, PARTIAL (WHIPPLE) 12/09/2009 PANCREATECTOMY PROXIMAL WITH SUBTOTAL DUODENECTOMY performed by BRYN LUNA at OR [facility] [place] REMOVE TONSILS & ADENOIDS, UNDER 12 TOTAL ABD HYSTERECTOMY W/WO REMOVAL OF TUBE(S) 1988 Review of patient's allergies indicates: Allergen Reactions Aspirin Morphine Sulfate Nausea/vomiting Current Outpatient Medications Medication Sig Dispense Refill MULTI-VITAMIN PO TABS 1 daily CALCIUM + D 600-200 MG-UNIT PO TABS 1 daily VITAMIN C 500 MG PO TABS 1 daily Fish Oil 1000 MG Oral Capsule Take 1 Capsule by mouth in the morning. Potassium Chloride ER 20 MEQ Oral Tablet Extended Release take 1 tablet by mouth every morning and 1 tablet by mouth BEFORE BEDTIME 180 Tablet 3 Levothyroxine Sodium 50 MCG Oral Tablet (Levoxyl) Take 1 Tablet by mouth in the morning. (at least 30 min prior to breakfast or other meds). 90 Tablet 3 TYLENOL 325 MG PO TABS 1 every 4-6 hours as needed Polyvinyl Alcohol 1.4 % Ophthalmic Solution (Tears Naturale II) Instill into both eyes 1 Drop in the morning AND 1 Drop at noon AND 1 Drop in the evening AND 1 Drop before bedtime. 15 mL 5 Carbamide Peroxide 6.5 % Otic Solution (Debrox) Administer 5 Drops to the right ear in the morning and 5 Drops before bedtime. 15 mL 0 Famotidine 20 MG Oral Tablet (Pepcid) Take 1 Tablet by mouth in the morning. 90 Tablet 3 Triamcinolone Acetonide 0.1 % External Cream (Aristocort) APPLY TO AFFECTED AREA 2 TIMES A DAY 15 g0 No current facility-administered medications for this visit. Objective: BP 122/76 | Pulse 69 | Temp 36.2 C (97.2 F) (Infrared ) | Resp 16 | Wt 50.8 kg (112 lb) | BMI 21.16 kg/m | BSA 1.48 m GEN: NAD HEENT: Benign CHEST: CTA B CV: RRR EXT: No c,c,e Assessment and Plan: Age-related osteoporosis without current pathological fracture (Primary) - DEXA SCAN/BONE MINERAL AXIAL Acquired hypothyroidism Dyslipidemia, goal LDL below 100 HTN, goal below 140/90 Gastroesophageal reflux disease, unspecified whether esophagitis present -continue current meds. Update labs. DEXA. Recheck 6 months or sooner prn. Follow Up: Return in about 6 months (around 07/05/2023) for recheck. | For: recheck | Check-out note:DEXA 30 min with pt, chart review Azael Thrasher MD documented in this encounter Nursing Notes * Emma Owen LPN - 01/04/2023 9:04 AM EST 6 month return documented in this encounter Plan of Treatment Upcoming Encounters Date Type Department Care Team (Late st Contact Info) Description 06/01/2023 10:00 AM EDT [address] [address] 06/13/2023 12:30 PM EDT Imaging Radiology [facility] 1st Floor, [place] [address] [facility] [place] [address] 06/16/2023 11:00 AM EDT Cardiac Studies Cardiac Studies, [facility] [address] [facility] [place] [address] 06/23/2023 11:00 AM EDT Office Visit Cardiology, [facility] [address] [facility] [place] [address] Nancy Celis CRNP [address] [facility] [place] [address] 07/15/2023 10:40 AM EDT Office Visit [facility] [address] [place] [id number] Azael Thrasher MD [address] [place] [address] Scheduled Orders Name Type Priority Associated Diagnoses Orde r Schedule DEXA SCAN/BONE MINERAL AXIAL Medical Imaging Routine Age-related osteoporosis without current pathological fracture Ordered: 01/04/2023 Health Maintenance Due Date Last Done Comments DXA Scan 1942 COVID-19 Vaccine (#1) 02/15/1943 Albumin/Creatinine Ratio 1960 Zoster Vaccines (1 of 2) 1992 Influenza Vaccine (FLU shot) (#1) 2022 12/24/2021, 12/14/2019, 11/24/2016, Additional history exists GFR 06/16/2023 06/15/2022, 04/30, 04/13/2021, Additional history exists TSH 06/16/2023 06/15/2022, 04/30, 03/30/2021 Depression Screening 06/26/2023 06/25/2022 DTaP,Tdap,and Td Vaccines (2 - Td or Tdap) 04/29/2031 04/28/2021 Pneumococcal Vaccine: 65+ Years Completed 12/24/2021, 02/13/2015 GARDASIL-HPV IMMUNIZATION SERIES Aged Out No longer eligible based on patient's age to complete this topic Hepatitis B Aged Out No longer eligi ble based on patient's age to complete this topic MENINGOCOCCAL (MENACTRA/MENVEO) Aged Out No longer eligible based on patient's age to complete this topic documented as of this encounter Medical Devices Implanted Type Area Mail Distribution Scheme Examiner Device Identifier Shelf Expiration Date Model / Serial / Lot Stent Raphael Mayer 3frx5 Gpso-3-5 - [id number] Implanted:Qty: 1 on 12/09/2009 at OR [facility] [place] N/A: Abdomen COOK : GT LUNA 08/28/2012 [id number] / / [id number] documented as of this encounter Visit Diagnoses Diagnosis Age-related osteoporosis without current pathological fracture- Primary Senile osteoporosis Acquired hypothyroidism Unspecified hypothyroidism Dyslipidemia, goal LDL below 100 Other and unspecified hyperlipidemia HTN, goal below 140/90 Unspecified essential hypertension Gastroesophageal reflux disease, unspecified whether esophagitis present documented in this encounter Advance Directives Latest [...] the patient have Health Care Power of Shift Supervisor Rn? Yes, not currently available Code Status History Code Status Date Activated Date Inactivated Comments Full Code 01/28/2010 9:39 PM 02/02/2010 10:30 PM This order reflects the patients wishes and were consensually agreed upon. Question Answer Comments Discussion of Advance Directives occurred with: Patient Does the patient have a Living Will? No Does the patient have Health Care Power of Shift Supervisor Rn? No Full Code 01/25/2010 6:49 PM 01/27/2010 6:45 PM Thi s order reflects the patients wishes and were consensually agreed upon. Question Answer Comments Discussion of Advance Directives occurred with: Patient Does the patient have a Living Will? No Does the patient have Health Care Power of Shift Supervisor Rn? No Full Code 12/23/2009 12:29 PM 01/01/2010 10:01 PM Th is order reflects the patients wishes and were consensually agreed upon. Full Code 12/23/2009 8:11 AM 12/23/2009 12:29 PM Th is order reflects the patients wishes and were consensually agreed upon. Care Teams Graphics Artist Relationship Specialty Start Date End Date Azael Thrasher MD [address] [facility] [place] [address] PCP - General Family Medicine 10/19/21 documented as of this encounter"
--- OUTSIDE RECORDS SUMMARY | 2023-02-07 13:13 | External Medical Summary | Summary of Care ---
Author Name Unknown Organization [facility] Address [address] [place] [address] Phone [phone] Care Team Providers Care Larry Operator Name Role Phone Jacinto Browning MD Primary Care Provider [phone]- [phone] Reason for Visit * Reason Onset Date Comments Medication Refill 09/20/2022 Encounter Details Date Type Department Care Team Description 09/20/2022 Refill [facility] [address] [place] [address] Jacinto Browning MD [address] [place] [address] Allergies Active Allergy Reactions Severity [...] the morning. 90 Tablet 3 09/21/2022 Active Famotidine 20 [...] Fever 01/28/2010 06/28/2021 Abdominal pain, generalized 01/28/2010 0502/2021 Candidal vulvovaginitis 12/28/2009 06/29/19 22 Other postoperative [...] encounter Miscellaneous Notes * Telephone Encounter - Tata Gordon RPh - 09/21/2022 10:42 AM EDTSigned Prescriptions: Disp Refills Levothyroxine Sodium 50 MCG Oral Tablet (L*90 Tab*3 Sig: Take 1 Tablet by mouth in the morning. (at least 30 min prior to breakfast or other meds). Authorizing Provider: JACINTO BROWNING Ordering User: TATA GORDON Famotidine 20 MG Oral Tablet (Pepcid) 90 Tab*3 Sig: Take 1 Tablet by mouth in the morning. Dayday spangler Provider: JACINTO BROWNING Ordering User: TATA GORDON Electronically signed by Tata Gordon [facility] at 09/21/2022 10:42 AM EDT * Telephone Encounter - TRACIE Morocho - 09/21/2022 10:39 AM EDT Pt is out of medication Please send today She is at pharmacy now Thank you for your assistance Corina Trejo Engagement Liaison II [facility] ([facility] (Formerly [facility]) 09/21/2022,10:39 AM * Telephone Encounter - Floresita Puga CPhT - 09/20/2022 1:16 PM EDT Did you pend patient's preferred pharmacy and medication before forwarding?yes Pharmacy: [facility] [id number] Pending Prescriptions: Disp Refills Levothyroxine Sodium 50 MCG Oral Tablet (*90 Tab*3 Sig: Take 1 Tablet by mouth in the morning. (at least 30 min prior to breakfast or other meds). Famotidine 20 MG Oral Tablet (Pepcid) 90 Tab*3 Sig: Take 1 Tablet by mouth in the morning. Last Visit: 07/07/2022 (in office), Visit date not found (telemedicine) Next Visit: 01/04/2023 If no future appointments scheduled, and last appointment is greater than a year ago, please schedule patient for a follow-up appointment Last date the medication was ordered: 09/07/2021, 09/08/2021 Is this request for a controlled substance?No [...] Imaging Radiology 01/04/2023 Office Visit Family Medicine Jacinto Browning MD [address] [place] [address] 06/16/2023 Cardiac Studies Cardiac Studies 06/23/2023 Office Visit Cardiology Nancy Celis CRNP [address] [place] [address] Health Maintenance Due Date Last Done Comments [...] this encounter Medical Devices Implanted Type Area Residential Support Specialist Device Identifier Shelf Expiration Date Model / Serial / Lot Stent Raphael Mayer 3frx5 Gpso-3-5 - [id number] Implanted:Qty: 1 on 12/09/2009 at [place] [facility] [place] N/A: Abdomen JEREMY : GT LUNA 08/28/2012 [id number] / / [id number] documented as of this encounter Advance Directives [...] the patient have Health Care Power of Conservation Or Heritage Architect? Yes, not currently available Code Status History Code Status Date Activated Date Inactivated Comments Full Code 01/28/2010 9:39 PM 02/02/2010 10:30 PM This order reflects the patients wishes and were consensually agreed upon. Question Answer Comments Discussion of Advance Directives occurred with: Patient Does the patient have a Living Will? No Does the patient have Health Care Power of Conservation Or Heritage Architect? No Full Code 01/25/2010 6:49 PM 01/27/2010 6:45 PM Thi s order reflects the patients wishes and were consensually agreed upon. Question Answer Comments Discussion of Advance Directives occurred with: Patient Does the patient have a Living Will? No Does the patient have Health Care Power of Conservation Or Heritage Architect? No Full Code 12/23/2009 12:29 PM 01/01/2010 10:01 PM Th is order reflects the patients wishes and were consensually agreed upon. Full Code 12/23/2009 8:11 AM 12/23/2009 12:29 PM Th is order reflects the patients wishes and were consensually agreed upon. Care Teams Larry Operator Relationship Specialty Start Date End Date Jacinto Browning MD [address] [place] [address] PCP - General Family Medicine 10/19/21 documented as of this encounter
--- NOTE | 2023-02-07 13:44 | History & Physical Report ---
Date of Service February 07, 2023 Assessment & Plan (1) Hypothyroidism: (2) GI bleed: (3) Melena: Plan Pt is an 82yoF with PMHx significant for villous adenoma s/p Whipple procedure in 2009, hypothyroidism, Hx of GI bleed admitted with episodes of melena for 1 day. GI Bleed Melena Pt states she had multiple episodes of bloody stools today FOBT pending Hgb slightly decreased at 11.6, trend H/H q4h, transfuse as needed PPI drip EPIC Chart review notes colonoscopy in 2020- noted diverticulosis and internal hemorrhoids NPO GI Consult- appreciate recs Abdominal Aneurysm Noted on CT abd/pelvis on aorta and R common iliac artery Pt follows with vascular outpt Continue to monitor outpt Hypothyroidism- continue home levothyroxine CODE STATUS: DNR/DNI DVT prophylaxis: SCDs in setting of possible GI bleed Diet: Currently NPO Dispo: Med/Surg with tele, pt/ot ordered History of Present Illness Chief Complaint: Bloody stools Primary Care Provider: Azael Thrasher MD Pt is an 82yoF with PMHx significant for villous adenoma s/p Whipple procedure in 2009, hypothyroidism, Hx of GI bleed admitted with episodes of melena for the past day. Hx obtained from pt and daughter at bedside as well as EPIC records. States that she had about 5 episodes of soft stools with dark red blood mixed in that started this morning. Notes that she has had this happen before, but this time it was not as severe. Chart review notes that she was admitted to [facility] in 2020 for an acute GI bleed requiring transfusion at that time. Had colonoscopy done that noted nonbleeding internal hemorrhoids and diverticulosis. Daughter present states that she lives with her and confirms the bloody stools. Pt states she was dizzy when she woke up this morning, denies SOB, chest pain. Notes she had episodes of nausea as well without emesis, with one episode in the ED. States she takes vitamins and supplements but her only prescribed medication is levothyroxine. Daughter confirms that whipple was done for a Hx of villous adenoma about 10 years ago. Allergies Allergy/AdvReac Type Severity Reaction Status Date / Time aspirin Allergy Bleeding Unverified 02/07/23 12:38 tendency morphine Allergy Vomiting Unverified 02/07/23 12:38 Home Medications Medication Instructions Recorded Confirmed Type ascorbic acid (vitamin C) 500 mg 500 mg PO QAM 04/28/21 02/07/23 History tablet calcium carb 300 mg-D3 20 mcg-mag 1 tab PO BID 04/28/21 02/07/23 History ox 25 mg-copy worker 0.5 [id number] tablet (Caltrate-D3 Plus Minerals) levothyroxine 50 mcg tablet 50 mcg PO QDB 04/28/21 02/07/23 History multivitamin 1 tab PO QDL 04/28/21 02/07/23 History omega 4-wxv-brp-fish oil 1,200 mg 1 cap PO DAILY@1800 04/28/21 02/07/23 History (144 mg-216 mg) capsule (Fish Oil) Past Med/Surg History Medical History Hypertension Hypothyroidism Surgical History No pertinent past surgical history Social History Smoking Status: Never smoker Second Hand Exposure: No; Do You Dip or Chew Tobacco: No; Tobacco Cessation Education Requested by Patient: No Hx Alcohol Use: No Hx Substance Use: No Preferred Language: Spanish Communication Ability: Effective Agricultural Produce Washer Required: No Beliefs That Will Affect Care: None Current Living Situation: Family Other Information That Helps Us Care for You: No Feels Safe at Home: Yes Safety Concerns: Feels Safe At This Time Assistive Devices: Denture - Upper, Denture - Lower and Glasses Review of Systems Review of Systems: All systems reviewed & are unremarkable except as noted in HPI & below Physical Exam Physical Exam: General: Alert, oriented. No acute distress Skin: No noted rashes or bruises Psych: Appropriate mood and affect Neuro: No gross deficits while laying in bed HEENT: NC/AT Chest: Nontender to palpation. CV: RRR Resp: Breath sounds clear bilaterally, no increased effort of breathing. Abdomen: Soft, nontender, nondistended. Extremities: No edema in lower extremities bilaterally. Results & Data Results & Data Vital Signs (Past 12 Hours) Vital Signs Temp Pulse Pulse Resp BP BP Pulse Ox 02/07/23 13:29 02/07/23 13:29 36.6 C 87 20 121/76 95 02/07/23 13:29 36.6 C 86 20 121/76 86 L 02/07/23 11:57 96 H 19 110/68 91 02/07/23 10:36 91 H 02/07/23 09:44 36.4 C L 104 H 20 117/71 94 O2 Del Method O2 Flow Rate 02/07/23 13:29 Nasal Cannula 3 02/07/23 13:29 Nasal Cannula 3 02/07/23 13:29 Room Air 02/07/23 11:57 Room Air 02/07/23 10:36 02/07/23 09:44 Room Air Diagnostic Findings Abdomen/Pelvis CT 02/07/23 10:59 CT SCAN OF THE ABDOMEN AND PELVIS WITH IV CONTRAST CLINICAL HISTORY: GI bleeding. Hematochezia. COMPARISON STUDY: Abdominal CT dated 12/23/2009. TECHNIQUE: Following the IV administration of 94 cc of Optiray 320, CT scan of the abdomen and pelvis is performed from the lung bases to the proximal femora. Images are reviewed in the axial, sagittal, and coronal planes. IV contrast was administered without complication. A dose lowering technique was utilized adhering to the principles of ALARA. CT DOSE: 373.68 mGy.cm FINDINGS: Lung bases: The patient is status post midline sternotomy. The heart is enlarged and without pericardial effusion. The coronary arteries are densely calcified. There is aneurysmal dilatation of the partially visualized ascending thoracic aorta. This measures up to 4.9 cm in diameter. There is elevation of the left hemidiaphragm with bibasilar scarring/atelectasis. No airspace consolidation typical for pneumonia or pleural effusion is identified. Liver: The contrast-enhanced liver is normal in size, contour, and attenuation. Pneumobilia is noted. There is minimal intrahepatic biliary ductal dilatation. The hepatic veins and portal veins are patent. Gallbladder: Surgically absent. Spleen: Normal in size and attenuation. There are calcified splenic granulomas. Pancreas: There is postsurgical change from a prior Whipple's procedure the pancreatic head is absent. The pancreatic body and tail are markedly atrophic with dilatation of the main pancreatic duct. This measures up to 6 mm in diameter. Large intraductal calculi are seen near the pancreaticojejunostomy on image #100. Adrenal glands: Unremarkable. Kidneys: The contrast enhanced kidneys are normal in size and without hydronephrosis. Foci of cortical scarring are noted in the left kidney. The kidneys enhance symmetrically. Abdominal vasculature: There is advanced atherosclerotic calcification and ectasia of the abdominal aorta. The infrarenal abdominal aorta measures up to 2.8 cm in diameter. 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 Bowel: The distal stomach and duodenum are surgically absent with gastrojejunostomy. No bowel obstruction is seen. A ventral hernia contains a nonobstructed segment of the transverse colon. The appendix is not identified and reported surgically absent. There is mild colonic diverticulosis without CT evidence of acute diverticulitis. Peritoneum: There is no intraperitoneal free air or abdominal ascites. A large fat-containing ventral hernias in the right anterior pelvis on image #156. There is a bowel containing hernia in the upper abdomen seen on image #123. Lymphadenopathy: None. Pelvic viscera: The bladder is distended but otherwise normal as imaged. The uterus is surgically absent. No adnexal lesion is seen. Skeletal structures: The skeletal structures are osteopenic. There are age- indeterminate compression deformities of T11, T12, L1, and L3. Moderate lumbosacral spondylosis is observed. Degenerative sclerosis is noted in the pubic symphysis. No lytic or blastic lesions are seen. IMPRESSION: 1. No acute infectious or inflammatory findings are identified in the abdomen or pelvis. 2. There is postsurgical change consistent with a previous Whipple procedure. 3. There is aneurysmal dilatation of the partially visualized ascending thoracic aorta which measures up to 4.9 cm in diameter. Follow-up with vascular surgery is advised. 4. Cardiomegaly with advanced coronary artery atherosclerosis. 5. The residual pancreatic body and tail are markedly atrophic. Large int raductal calculi are seen above the pancreaticojejunostomy. 6. A ventral hernia contains a nonobstructed segment of the transverse colon. 7. 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 8. Bladder distention. 9. Additional findings as above. ACT 112: Positive. There are findings on this exam that require communication between the performing entity and the patient following Patient Test Result Information Act ([place] Act 112) guidelines. Electronically signed by: Agustin Braga M.D. 02/07/2023 11:47 AM
[2023-02-07 16:46] LABS: Hematocrit (blood only) 33.1 % (37.0-47.0); Hemoglobin 10.9 g/dl (12.0-16.0)
[2023-02-07] MEDS: PANTOprazole 40 MG in DEXTROSE 5% MINI-B 100 ML IV SCH ×2 (17:07→22:20)
[2023-02-07 18:25] LABS: Hematocrit (blood only) 32.2 % (37.0-47.0); Hemoglobin 10.6 g/dl (12.0-16.0)
[2023-02-08 00:52] LABS: Hematocrit (blood only) 30.3 % (37.0-47.0)
[2023-02-08] MEDS: PANTOprazole 40 MG in DEXTROSE 5% MINI-B 100 ML IV SCH ×5 (03:19→23:38)
[2023-02-08 06:21] LABS: Basophils # (auto) 0.06 K/uL (0.00-0.20); Basophils % (auto) 0.6 %; Eosinophils # (auto) 0.28 K/uL (0.00-0.50); Eosinophils % (auto) 2.8 %; Hematocrit (blood only) 28.6 % (37.0-47.0); Hemoglobin 9.6 g/dl (12.0-16.0); Immature Granulocytes # (auto) 0.02 K/uL (0.01-0.20); Immature Granulocytes % (auto) 0.2 %; Lymphocytes # (auto) 4.03 K/uL (1.20-3.40); Lymphocytes % (auto) 40.9 %; Mean Corpuscular Hemoglobin 29.8 pg (25.0-34.0); Mean Corpuscular Hgb Conc 33.6 g/dL (32.0-36.0); Mean Corpuscular Volume 88.8 fL (80.0-100.0); Mean Platelet Volume 10.3 fL (9.4-12.4); Monocytes # (auto) 1.07 K/uL (0.11-0.59); Monocytes % (auto) 10.9 %; Neutrophils # (auto) 4.39 K/uL (1.40-6.50); Neutrophils % (auto) 44.6 %; Platelet Count 247 K/uL (130-400); RDW Coefficient of Variation 14.8 % (11.5-14.5); Red Blood Count 3.22 M/uL (4.20-5.40); White Blood Count 9.85 K/ul (4.8-10.8)
[2023-02-08 06:45] LABS: Albumin Globulin Ratio 1.2 (0.9-2); Bilirubin,Total 1.1 mg/dl (0.2-1.0); Calcium 8.5 mg/dl (8.6-10.3); Creatinine Clr Calc Pharmacy 39.8 ml/min; Est GFR (Non-African American) 64.7 ml/min; Globulin 2.6 gm/dl (2.5-4.0); Magnesium 1.7 mg/dl (1.7-2.4); Phosphorus 3.7 mg/dl (2.5-4.9); Potassium 3.7 mmol/L (3.5-5.1); Total Protein 5.6 gm/dl (6.0-8.3)
[2023-02-08] MEDS: LEVOTHYROXINE SODIUM 50 MCG TABLET PO SCH (06:49)
--- NOTE | 2023-02-08 09:27 | Gastrointestinal Consultation ---
Date of Consultation February 08, 2023 Assessment & Plan (1) GI bleed: 82 year old female who presents with painless rectal bleeding, BRBPR at home, now with documentation of brown stools by nursing staff around 9 am. She has remained hemodynamically stable, dowtrending HGB from 11 to 9.6 this AM DDX discussed: diverticular vs hemorrhoidal vs other Continue conservative measure Start a liquid diet Trend H&H Monitor and document GI output Transfuse PRN No NSAIDs Does not appear she takes any AC Will re-evaluate in the AM Thank you for allowing us to participate in the care of this patient. Please call with any acute changes, questions or concerns. Please see addendum below with additional recommendation from my supervising physician. Supervising Physician Co-Signing Physician Notes I have personally seen and examined the patient with LUIS Cueva. Her note reflects my exam and findings. I agree with her impression and plan. Most c/w diverticular bleed. Colonoscopy in 2020. No current indication for repeat colonoscopy. Sandrine Cox. History of Present Illness Reason for Consultation: GI bleed Requesting Physician: José Miguel Attending Physician: Tessa Valdez MD History of Present Illness 82 year old female with history of villous adenoma s/p Whipple procedure in 2009, hypothyroidism admitted with bloody stools - GI asked to evaluate. Pt was seen and evaluated, chart reviewed. She notes that for about 1 day now she has had soft stools mixed with dark red blood. She denies any black stools to me. She was feeling tired/weak so sought EDcare. Since admission, she suggests she has had additional episode of bleeding, however most recently documented by nursing is a brown, formed stool at 9 am today. She denies black stools. She is no longer feeling weak/tired. No fever, chills, CP, SOB. CTAP 2022: No acute infectious or inflammatory findings are identified in the abdomen or pelvis.. There is postsurgical change consistent with a previous Whipple procedure.There is aneurysmal dilatation of the partially visualized ascending thoracic aorta which measures up to 4.9 cm in diameter. Follow-up with vascular surgery is advised. Cardiomegaly with advanced coronary artery atherosclerosis. The residual pancreatic body and tail are markedly atrophic. Large intraductal calculi are seen above the pancreaticojejunostomy.A ventral hernia contains a nonobstructed segment of the transverse colon.. 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 Bladder distention. Colon 2020: tics and hemorrhiods Allergies Allergy/AdvReac Type Severity Reaction Status Date / Time aspirin Allergy Bleeding Unverified 02/07/23 12:38 tendency morphine Allergy Vomiting Unverified 02/07/23 12:38 Home Medications Medication Instructions Recorded Confirmed Type ascorbic acid (vitamin C) 500 mg 500 mg PO QAM 04/28/21 02/07/23 History tablet calcium carb 300 mg-D3 20 mcg-mag 1 tab PO BID 04/28/21 02/07/23 History ox 25 mg-copyright manager 0.5 [id number] tablet (Caltrate-D3 Plus Minerals) levothyroxine 50 mcg tablet 50 mcg PO QDB 04/28/21 02/07/23 History multivitamin 1 tab PO QDL 04/28/21 02/07/23 History omega 3-ljy-fuv-fish oil 1,200 mg 1 cap PO DAILY@1800 04/28/21 02/07/23 History (144 mg-216 mg) capsule (Fish Oil) Patient History Medical History Hypertension Hypothyroidism Surgical History No pertinent past surgical history Social History Smoking Status: Never smoker Second Hand Exposure: No; Do You Dip or Chew Tobacco: No; Tobacco Cessation Education Requested by Patient: No Hx Alcohol Use: No Hx Substance Use: No Preferred Language: Tamazight Communication Ability: Effective District Operations Manager Required: No Beliefs That Will Affect Care: None Current Living Situation: Family Current Living Situation Comment: Lives with daughter and son in law Other Information That Helps Us Care for You: No Feels Safe at Home: Yes Safety Concerns: Feels Safe At This Time Assistive Devices: Denture - Upper, Denture - Lower and Glasses Review of Systems Review of Systems: All systems reviewed & are unremarkable except as noted in HPI & below Physical Exam Constitutional: WD/WN, vitals as above Respiratory: normal respiratory effort, lungs clear to auscultation Cardiovascular: RRR, no murmur, no edema Gastrointestinal (Abdomen): normal bowel sounds, soft, nontender, no hepa tosplenomegaly Skin: no rashes, warm and dry Results & Data Vital Signs (Past 12 Hours) Vital Signs Temp Pulse Pulse Pulse Pulse Resp BP 02/08/23 07:50 36.5 C 62 16 02/08/23 07:27 62 02/08/23 04:03 36.8 C 70 18 02/07/23 22:30 73 02/07/23 22:15 02/07/23 22:15 36.7 C 83 18 130/80 BP Pulse Ox O2 Del Method O2 Flow Rate 02/08/23 07:50 100/64 95 Nasal Cannula 2 02/08/23 07:27 02/08/23 04:03 99/62 L 92 Nasal Cannula 2 02/07/23 22:30 02/07/23 22:15 Nasal Cannula 2 02/07/23 22:15 96 Nasal Cannula 3 Laboratory Results 02/08/23 02/08/23 02/07/23 Range/Units 05:39 00:27 18:12 WBC 9.85 (4.8-10.8) K/ul RBC 3.22 L (4.20-5.40) M/uL Hgb 9.6 L 10.0 L 10.6 L (12.0-16.0) g/dl Hct 28.6 L 30.3 L 32.2 L (37.0-47.0) % MCV 88.8 (80.0-100.0) fL MCH 29.8 (25.0-34.0) pg MCHC 33.6 (32.0-36.0) g/dL RDW Std Deviation 48.0 H (36.4-46.3) fL RDW Coeff of Allan 14.8 H (11.5-14.5) % Plt Count 247 (130-400) K/uL MPV 10.3 (9.4-12.4) fL Immature Gran % (Auto) 0.2 % Neut % (Auto) 44.6 % Lymph % (Auto) 40.9 % [place] % (Auto) 10.9 % Eos % (Auto) 2.8 % Baso % (Auto) 0.6 % Neut # (Auto) 4.39 (1.40-6.50) K/uL Lymph # (Auto) 4.03 H (1.20-3.40) K/uL [place] # (Auto) 1.07 H (0.11-0.59) K/uL Eos # (Auto) 0.28 (0.00-0.50) K/uL Baso # (Auto) 0.06 (0.00-0.20) K/uL Immature Gran # (Auto) 0.02 (0.01-0.20) K/uL PT (9.0-12.0) Seconds INR (0.9-1.1) APTT (21-31) Seconds PTT Ratio Sodium 139 (136-145) mmol/L Potassium 3.7 D (3.5-5.1) mmol/L Chloride 109 H (98-107) mmol/L Carbon Dioxide 26 (21-32) mmol/L Anion Gap 4 (3-11) BUN 34 H (6-23) mg/dl Creatinine 0.85 (0.6-1.2) mg/dl Est Cr Clr Drug Dosing 39.8 ml/min Est GFR ( Amer) 75.0 ml/min Est GFR (Non-Af Amer) 64.7 ml/min BUN/Creatinine Ratio 40.0 H (10-20) Glucose 94 (70-99(Fasting)) mg/dl Calcium 8.5 L (8.6-10.3) mg/dl Phosphorus 3.7 (2.5-4.9) mg/dl Magnesium 1.7 (1.7-2.4) mg/dl Total Bilirubin 1.1 H (0.2-1.0) mg/dl Direct Bilirubin (0-0.2) mg/dl AST 16 (13-39) U/L ALT 12 (7-52) U/L Alkaline Phosphatase 90 (34-104) U/L Total Protein 5.6 L (6.0-8.3) gm/dl Albumin 3.0 L (3.4-5.0) gm/dl Globulin 2.6 (2.5-4.0) gm/dl Albumin/Globulin Ratio 1.2 (0.9-2) Lipase (11-82) U/L 02/07/23 02/07/23 Range/Units 16:26 10:10 WBC 14.62 H (4.8-10.8) K/ul RBC 3.92 L (4.20-5.40) M/uL Hgb 10.9 L 11.6 L (12.0-16.0) g/dl Hct 33.1 L 36.5 L (37.0-47.0) % MCV 93.1 (80.0-100.0) fL MCH 29.6 (25.0-34.0) pg MCHC 31.8 L (32.0-36.0) g/dL RDW Std Deviation 50.8 H (36.4-46.3) fL RDW Coeff of Allan 14.8 H (11.5-14.5) % Plt Count 264 (130-400) K/uL MPV 10.0 (9.4-12.4) fL Immature Gran % (Auto) 0.4 % Neut % (Auto) 76.9 % Lymph % (Auto) 15.8 % [place] % (Auto) 6.2 % Eos % (Auto) 0.3 % Baso % (Auto) 0.4 % Neut # (Auto) 11.24 H (1.40-6.50) K/uL Lymph # (Auto) 2.31 (1.20-3.40) K/uL [place] # (Auto) 0.90 H (0.11-0.59) K/uL Eos # (Auto) 0.05 (0.00-0.50) K/uL Baso # (Auto) 0.06 (0.00-0.20) K/uL Immature Gran # (Auto) 0.06 (0.01-0.20) K/uL PT 11.7 (9.0-12.0) Seconds INR 1.1 (0.9-1.1) APTT 26 (21-31) Seconds PTT Ratio 0.9 Sodium 139 (136-145) mmol/L Potassium 4.7 (3.5-5.1) mmol/L Chloride 107 (98-107) mmol/L Carbon Dioxide 25 (21-32) mmol/L Anion Gap 7 (3-11) BUN 41 H (6-23) mg/dl Creatinine 0.85 (0.6-1.2) mg/dl Est Cr Clr Drug Dosing 39.8 ml/min Est GFR ( Amer) 75.0 ml/min Est GFR (Non-Af Amer) 64.7 ml/min BUN/Creatinine Ratio 48.2 H (10-20) Glucose 178 H (70-99(Fasting)) mg/dl Calcium 8.8 (8.6-10.3) mg/dl Phosphorus (2.5-4.9) mg/dl Magnesium 1.8 (1.7-2.4) mg/dl Total Bilirubin 0.8 (0.2-1.0) mg/dl Direct Bilirubin 0.1 (0-0.2) mg/dl AST 18 (13-39) U/L ALT 16 (7-52) U/L Alkaline Phosphatase 108 H (34-104) U/L Total Protein 6.6 (6.0-8.3) gm/dl Albumin 3.5 (3.4-5.0) gm/dl Globulin (2.5-4.0) gm/dl Albumin/Globulin Ratio (0.9-2) Lipase 4 L (11-82) U/L (1) GI bleed GI bleed type/associated pathology: melena Qualified Code(s): K92.1 - Melena
[2023-02-08 15:05] LABS: Hematocrit (blood only) 30.6 % (37.0-47.0); Hemoglobin 10.1 g/dl (12.0-16.0)
[2023-02-08] MEDS ORDERED: INFLUENZA VACCINE HIGH-DOSE (HD-IIV4) PF 65+ 0.7mL SYR IM ONE (17:42)
--- NOTE | 2023-02-08 18:05 | Hospitalist Progress Note ---
Date of Service February 08, 2023 Assessment & Plan (1) Hypothyroidism: (2) GI bleed: (3) Melena: Plan Pt is an 82yoF with PMHx significant for villous adenoma s/p Whipple procedure in 2009, hypothyroidism, Hx of GI bleed admitted with episodes of melena for 1 day. GI Bleed Melena Positive FOBT Present on admission for multiple episodes of bloody stools Last colonoscopy in 2020- noted diverticulosis and internal hemorrhoids CT abd/pelvis showed no acute infectious or inflammatory findings are identified in the abdomen or pelvis. Hgb stable at 10.1 GI on board recommended conservative management Starting on clear liquid diet Will monitor H/H Continue IV PPI drip Abdominal Aneurysm Noted on CT abd/pelvis on aorta and R common iliac artery Pt follows with vascular outpt Continue to monitor outpt Hypothyroidism- continue home levothyroxine CODE STATUS: DNR/DNI DVT prophylaxis: SCDs in setting of possible GI bleed Disposition Will discharge once medically stable Admission and Anticipated Discharge Date Admission Date: February 07, 2023 Subjective Pt was seen and examined for follow up of GI bleed Lying in bed with no acute distress Pt said that he had one episode of bowel movement so far she said that there is not bloody stool noted this morning Denies any chest pain, palpitation, dizziness and SOB Review of Systems Review of Systems: All systems reviewed & are unremarkable except as noted in Subjective Physical Exam Physical Exam: General- No acute distress Head- atraumatic Eyes- PERRL, EOMI, ENT- oropharynx clear Neck- supple, no JVD Lungs- No wheezing Heart- regular rhythm; no murmur Abdomen- normal bowel sounds, soft, nontender Extremities- no calf tenderness Neuro- alert, oriented; PERRL, EOMI; no facial palsy; no dysarthria Skin- warm & dry Results & Data Results & Data Vital Signs (Past 12 Hours) Vital Signs Temp Pulse Pulse Resp BP Pulse Ox O2 Del Method 02/08/23 16:38 70 02/08/23 15:50 36.8 C 58 L 16 103/66 96 Room Air 02/08/23 11:38 36.4 C L 69 18 124/71 95 Room Air 02/08/23 07:50 36.5 C 62 16 100/64 95 Nasal Cannula 02/08/23 07:27 62 02/08/23 07:20 Room Air O2 Flow Rate 02/08/23 16:38 02/08/23 15:50 02/08/23 11:38 02/08/23 07:50 2 02/08/23 07:27 02/08/23 07:20 (2) GI bleed GI bleed type/associated pathology: melena Qualified Code(s): K92.1 - Melena
[2023-02-09] MEDS: PANTOprazole 40 MG in DEXTROSE 5% MINI-B 100 ML IV SCH ×4 (04:57→20:56)
[2023-02-09] MEDS: LEVOTHYROXINE SODIUM 50 MCG TABLET PO SCH (05:01)
[2023-02-09 06:37] LABS: Hematocrit (blood only) 28.6 % (37.0-47.0); Hemoglobin 9.4 g/dl (12.0-16.0); Mean Corpuscular Hemoglobin 30.3 pg (25.0-34.0); Mean Corpuscular Hgb Conc 32.9 g/dL (32.0-36.0); Mean Corpuscular Volume 92.3 fL (80.0-100.0); Mean Platelet Volume 10.3 fL (9.4-12.4); Platelet Count 219 K/uL (130-400); RDW Coefficient of Variation 14.7 % (11.5-14.5); RDW Standard Deviation 49.8 fL (36.4-46.3); White Blood Count 8.08 K/ul (4.8-10.8)
[2023-02-09 06:58] LABS: Calcium 8.6 mg/dl (8.6-10.3); Potassium 3.4 mmol/L (3.5-5.1)
[2023-02-09 07:03] LABS: BUN Creatinine Ratio 24.4 (10-20); Creatinine Clr Calc Pharmacy 37.6 ml/min; Est GFR (Non-African American) 60.4 ml/min
--- NOTE | 2023-02-09 09:38 | Gastroenterology Progress Note ---
Date of Service February 09, 2023 Assessment & Plan (1) GI bleed: Plan: 82 year old female who presents with painless rectal bleeding, BRBPR at home, now with documentation of brown stools by nursing staff around 9 am. She has remained hemodynamically stable, dowtrending HGB from 11 to 9.6 this AM No further BMs over night or evidence of bleeding, HGB stable DDX discussed: diverticular vs hemorrhoidal vs other Continue conservative measure Advance diet as tolerated Trend H&H Monitor and document GI output Transfuse PRN No NSAIDs Does not appear she takes any AC She is not interested in outpatient endoscopic evaluation at this time Recall GI as needed. Thank you for allowing us to participate in the care of this patient. Please call with any acute changes, questions or concerns. Please see addendum below with additional recommendation from my supervising physician. Admission and Anticipated Discharge Date Admission Date: February 07, 2023 Supervising Physician Co-Signing Physician Notes I have personally seen and examined the patient with LUIS Cueva. Her note reflects my exam and findings. I agree with her impression and plan. No signs of continued GI bleeding. Eliu Gee M.D. Subjective Pt was seen and evaluated, chart reviewed. No further BMs since evaluated yesterday. No further episodes of bleeding. Denies abd pain, nausea, vomiting. Review of Systems Review of Systems: All systems reviewed & are unremarkable except as noted in HPI & below Physical Exam Constitutional: WD/WN, vitals as above Respiratory: normal respiratory effort, lungs clear to auscultation Cardiovascular: Rate/Rhythm: regular rate Gastrointestinal (Abdomen): normal bowel sounds, soft, nontender, no hepatosplenomegaly Skin: no rashes, warm and dry Results & Data Vital Signs (Past 12 Hours) Vital Signs Temp Pulse Pulse Resp BP Pulse Ox O2 Del Method 02/09/23 07:49 36.4 C L 82 18 117/69 91 Room Air 02/09/23 07:17 57 L 02/09/23 03:12 36.6 C 53 L 18 103/63 92 Room Air 02/08/23 23:08 36.2 C L 57 L 18 117/72 92 Room Air 02/08/23 22:00 56 L Laboratory Results 02/09/23 02/08/23 02/08/23 Range/Units 05:51 14:30 09:50 WBC 8.08 (4.8-10.8) K/ul RBC 3.10 L (4.20-5.40) M/uL Hgb 9.4 L 10.1 L (12.0-16.0) g/dl Hct 28.6 L 30.6 L (37.0-47.0) % MCV 92.3 (80.0-100.0) fL MCH 30.3 (25.0-34.0) pg MCHC 32.9 (32.0-36.0) g/dL RDW Std Deviation 49.8 H (36.4-46.3) fL RDW Coeff of Allan 14.7 H (11.5-14.5) % Plt Count 219 (130-400) K/uL MPV 10.3 (9.4-12.4) fL Sodium 137 (136-145) mmol/L Potassium 3.4 L (3.5-5.1) mmol/L Chloride 106 (98-107) mmol/L Carbon Dioxide 24 (21-32) mmol/L Anion Gap 7 (3-11) BUN 22 (6-23) mg/dl Creatinine 0.90 (0.6-1.2) mg/dl Est Cr Clr Drug Dosing 37.6 ml/min Est GFR ( Amer) 70.0 ml/min Est GFR (Non-Af Amer) 60.4 ml/min BUN/Creatinine Ratio 24.4 H (10-20) Glucose 123 H (70-99(Fasting)) mg/dl Calcium 8.6 (8.6-10.3) mg/dl Stool Occult Bld Scrn Positive A (Negative) (1) GI bleed GI bleed type/associated pathology: melena Qualified Code(s): K92.1 - Melena
[2023-02-09] MEDS ORDERED: POTASSIUM CHLORIDE CRTAB 20 MEQ TABCR PO STA (11:21)
[2023-02-09] MEDS ORDERED: ALUMINUM/MAGNESIUM SUSP 30 ML UDC PO PRN (11:21)
[2023-02-09] MEDS ORDERED: ACETAMINOPHEN 500 MG TAB PO PRN (11:21)
[2023-02-09] MEDS ORDERED: POLYETHYLENE (MIRALAX) 17 GM PACK PO PRN (11:21)
[2023-02-09] MEDS ORDERED: ONDANSETRON INJ 2 MG/ML 2 ML VIAL IV PRN (15:22)
--- NOTE | 2023-02-09 15:27 | Hospitalist Progress Note ---
Date of Service February 09, 2023 Assessment & Plan (1) Hypothyroidism: (2) GI bleed: (3) Melena: Plan Pt is an 82yoF with PMHx significant for villous adenoma s/p Whipple procedure in 2009, hypothyroidism, Hx of GI bleed admitted with episodes of melena for 1 day. GI Bleed Melena Positive FOBT Present on admission for multiple episodes of bloody stools Last colonoscopy in 2020- noted diverticulosis and internal hemorrhoids CT abd/pelvis showed no acute infectious or inflammatory findings in the abdomen or pelvis. Hgb stable at 9-10, continue to monitor and trend with AM labs Gi consult- appreciate recs -recommending conservative management Continue PPI drip Abdominal Aneurysm Noted on CT abd/pelvis on aorta and R common iliac artery Pt follows with vascular outpt Continue to monitor outpt Hypothyroidism- continue home levothyroxine CODE STATUS: DNR/DNI DVT prophylaxis: SCDs in setting of possible GI bleed Diet: advance as tolerated Disposition: Per CM, wants to go home with family Admission and Anticipated Discharge Date Admission Date: February 07, 2023 Subjective pt stated that she had 2 bloody BMs, black in color. Later notified by nursing that she was concerned about her eye being red, but no longer. Review of Systems Review of Systems: All systems reviewed & are unremarkable except as noted in Subjective Physical Exam Physical Exam: General: Alert, oriented. No acute distress Skin: No noted rashes or bruises Psych: Appropriate mood and affect Neuro: No gross deficits while laying in bed HEENT: NC/AT Chest: Nontender to palpation. CV: RRR Resp: Breath sounds clear bilaterally, no increased effort of breathing. Abdomen: Soft, nontender, nondistended. Extremities: No edema in lower extremities bilaterally. Results & Data Results & Data Vital Signs (Past 12 Hours) Vital Signs Temp Pulse Pulse Resp BP BP Pulse Ox 02/09/23 15:21 64 02/09/23 15:13 36.4 C L 54 L 16 146/83 H 94 02/09/23 11:30 36.5 C 56 L 18 115/69 90 02/09/23 08:15 02/09/23 07:49 36.4 C L 82 18 117/69 91 02/09/23 07:17 57 L O2 Del Method 02/09/23 15:21 02/09/23 15:13 Room Air 02/09/23 11:30 Room Air 02/09/23 08:15 Room Air 02/09/23 07:49 Room Air 02/09/23 07:17 (2) GI bleed GI bleed type/associated pathology: melena Qualified Code(s): K92.1 - Melena
[2023-02-10] MEDS ORDERED: Nursing to Pharmacy Communication SCH (00:15)
[2023-02-10] MEDS: PANTOprazole 40 MG in DEXTROSE 5% MINI-B 100 ML IV SCH ×3 (02:01→12:04)
[2023-02-10] MEDS: LEVOTHYROXINE SODIUM 50 MCG TABLET PO SCH (05:35)
[2023-02-10 07:16] LABS: Basophils # (auto) 0.05 K/uL (0.00-0.20); Basophils % (auto) 0.8 %; Eosinophils # (auto) 0.32 K/uL (0.00-0.50); Eosinophils % (auto) 5.1 %; Hematocrit (blood only) 27.9 % (37.0-47.0); Immature Granulocytes # (auto) 0.02 K/uL (0.01-0.20); Immature Granulocytes % (auto) 0.3 %; Lymphocytes % (auto) 36.8 %; Mean Corpuscular Hemoglobin 29.8 pg (25.0-34.0); Mean Corpuscular Hgb Conc 32.3 g/dL (32.0-36.0); Mean Corpuscular Volume 92.4 fL (80.0-100.0); Monocytes # (auto) 0.75 K/uL (0.11-0.59); Neutrophils # (auto) 2.81 K/uL (1.40-6.50); Platelet Count 228 K/uL (130-400); RDW Coefficient of Variation 14.6 % (11.5-14.5); RDW Standard Deviation 49.5 fL (36.4-46.3); Red Blood Count 3.02 M/uL (4.20-5.40); White Blood Count 6.25 K/ul (4.8-10.8)
[2023-02-10 07:37] LABS: Albumin Globulin Ratio 1.2 (0.9-2); Albumin Level 3.1 gm/dl (3.4-5.0); BUN Creatinine Ratio 13.8 (10-20); Bilirubin,Total 1.2 mg/dl (0.2-1.0); Calcium 8.7 mg/dl (8.6-10.3); Creatinine Clr Calc Pharmacy 38.9 ml/min; Est GFR (African American) 72.9 ml/min; Est GFR (Non-African American) 62.9 ml/min; Globulin 2.6 gm/dl (2.5-4.0); Magnesium 1.7 mg/dl (1.7-2.4); Phosphorus 3.8 mg/dl (2.5-4.9); Potassium 3.9 mmol/L (3.5-5.1); Total Protein 5.7 gm/dl (6.0-8.3)
--- NOTE | 2023-02-10 12:30 | Hospitalist Progress Note ---
Date of Service February 10, 2023 Assessment & Plan (1) Hypothyroidism: (2) GI bleed: (3) Melena: Plan Pt is an 82yoF with PMHx significant for villous adenoma s/p Whipple procedure in 2009, hypothyroidism, Hx of GI bleed admitted with episodes of melena for 1 day. GI Bleed Melena Positive FOBT Present on admission for multiple episodes of bloody stools Last colonoscopy in 2020- noted diverticulosis and internal hemorrhoids CT abd/pelvis showed no acute infectious or inflammatory findings in the abdomen or pelvis. Hgb stable at 9-10, continue to monitor and trend with AM labs GI consult- appreciate recs -recommending conservative management -per GI, pt not interested in endoscopic evaluation PPI drip switched to PO pantoprazole BID Continue to monitor hgb and transfuse as needed Abdominal Aneurysm Noted on CT abd/pelvis on aorta and R common iliac artery Pt follows with vascular outpt Continue to monitor outpt Eye Dryness/swelling Ordered prn artificial tears Outpt followup Hypothyroidism- continue home levothyroxine CODE STATUS: DNR/DNI DVT prophylaxis: SCDs in setting of possible GI bleed Diet: advance as tolerated Disposition: PT/OT ordered- recommending home with family. Admission and Anticipated Discharge Date Admission Date: February 07, 2023 Subjective pt seen in the AM, noted no further episodes of bloody BMs at that time. States overnight that her right eye was puffy and red around it. Notes that this occurs sometimes at home sometimes and she has followed up with an eye provider who recommended eye drops. Later notified by nursing that she had another bloody bowel movement. Review of Systems Review of Systems: All systems reviewed & are unremarkable except as noted in Subjective Physical Exam Physical Exam: General: Alert, oriented. No acute distress Skin: No noted rashes or bruises Psych: Appropriate mood and affect Neuro: No gross deficits while laying in bed HEENT: NC/AT Chest: Nontender to palpation. CV: RRR, blowing murmur Resp: Breath sounds clear bilaterally, no increased effort of breathing. Abdomen: Soft, nontender, nondistended. Extremities: No edema in lower extremities bilaterally. Results & Data Results & Data Vital Signs (Past 12 Hours) Vital Signs Temp Pulse Pulse Resp BP Pulse Ox O2 Del Method 02/10/23 11:28 36.5 C 53 L 18 116/73 95 Room Air 02/10/23 07:57 56 L 02/10/23 07:23 36.5 C 51 L 18 113/59 L 90 Room Air 02/10/23 04:00 36.6 C 58 L 18 103/62 92 Room Air 02/10/23 02:19 55 L (2) GI bleed GI bleed type/associated pathology: melena Qualified Code(s): K92.1 - Melena
[2023-02-10] MEDS ORDERED: ARTIFICIAL TEARS OPB PRN (16:50)
[2023-02-10] MEDS: PANTOprazole 40 MG TAB PO SCH (21:00)
[2023-02-11] MEDS: LEVOTHYROXINE SODIUM 50 MCG TABLET PO SCH (06:00)
[2023-02-11 07:25] LABS: Basophils # (auto) 0.06 K/uL (0.00-0.20); Basophils % (auto) 0.9 %; Eosinophils # (auto) 0.31 K/uL (0.00-0.50); Eosinophils % (auto) 4.6 %; Hematocrit (blood only) 27.8 % (37.0-47.0); Hemoglobin 8.8 g/dl (12.0-16.0); Immature Granulocytes # (auto) 0.02 K/uL (0.01-0.20); Immature Granulocytes % (auto) 0.3 %; Lymphocytes # (auto) 2.24 K/uL (1.20-3.40); Lymphocytes % (auto) 33.5 %; Mean Corpuscular Hemoglobin 29.5 pg (25.0-34.0); Mean Corpuscular Hgb Conc 31.7 g/dL (32.0-36.0); Mean Corpuscular Volume 93.3 fL (80.0-100.0); Mean Platelet Volume 10.5 fL (9.4-12.4); Monocytes # (auto) 0.72 K/uL (0.11-0.59); Monocytes % (auto) 10.8 %; Neutrophils # (auto) 3.33 K/uL (1.40-6.50); Neutrophils % (auto) 49.9 %; Platelet Count 241 K/uL (130-400); RDW Coefficient of Variation 14.6 % (11.5-14.5); RDW Standard Deviation 49.1 fL (36.4-46.3); Red Blood Count 2.98 M/uL (4.20-5.40); White Blood Count 6.68 K/ul (4.8-10.8)
[2023-02-11 08:01] LABS: Albumin Globulin Ratio 1.2 (0.9-2); Albumin Level 3.1 gm/dl (3.4-5.0); BUN Creatinine Ratio 12.6 (10-20); Bilirubin,Total 0.7 mg/dl (0.2-1.0); Calcium 8.6 mg/dl (8.6-10.3); Creatinine Clr Calc Pharmacy 35.6 ml/min; Est GFR (African American) 65.6 ml/min; Est GFR (Non-African American) 56.6 ml/min; Globulin 2.5 gm/dl (2.5-4.0); Magnesium 1.7 mg/dl (1.7-2.4); Phosphorus 3.7 mg/dl (2.5-4.9); Total Protein 5.6 gm/dl (6.0-8.3)
[2023-02-11] MEDS: PANTOprazole 40 MG TAB PO SCH (08:11)
--- NOTE | 2023-02-11 09:48 | Gastroenterology Progress Note ---
Date of Service February 11, 2023 Assessment & Plan (1) GI bleed: Plan: 82 year old female who presents with painless rectal bleeding, which resolved but returned with mixed dark brown/black/bloody stools We are unable to provide endoscopic evaluation today as she ate breakfast, but we can plan for EGD/Colon on Tuesday DDX discussed: diverticular vs hemorrhoidal vs upper GI vs other Clear liquid diet Tuesday and Tuesday Start Golytely Tuesday around 1500 NPO aftermidnight for EGD/Colon on Tuesday Continue conservative measure Trend H&H Monitor and document GI output Transfuse PRN No NSAIDs Does not appear she takes any AC We appreciate assistance in the management of any serological abnormality and corrections to include: hemoglobin >7, INR <2, platelets >50,000, potassium levels >3.5 but <5.3, and sodium levels within 5 points of the reference range prior to endoscopic evaluation. Thank you for allowing us to participate in the care of this patient. Please call with any acute changes, questions or concerns. Please see addendum below with additional recommendation from my supervising physician. Admission and Anticipated Discharge Date Admission Date: February 07, 2023 Supervising Physician Co-Signing Physician Notes I saw and evaluated the patient, we were consulted for recurrent gastro intestinal bleeding. The patient was seen by my partner earlier this week with offered endoscopic evaluation however the patient declined. The patient is now interested in pursuing endoscopic evaluation. Based on the history the patient likely has bleeding from ischemic colitis or perhaps a diverticular hemorrhage or an anorectal source such as hemorrhoids. Other possible etiologies could include an occult endoscopic evaluation would be certainly helpful to better define her hematochezia. Recommendations Colonoscopy and upper endoscopy scheduled for Tuesday Please call with any additional questions or concerns over the weekend Patient may have clear liquids over the weekend Subjective GI was asked to re-evaluate. Had a BM last evening and this AM which was dark brown/maybe black with some mixed blood. She is requesting endoscopic evaluation. Ate breakfast this AM. Review of Systems Review of Systems: All systems reviewed & are unremarkable except as noted in HPI & below Physical Exam Constitutional: WD/WN, vitals as above Respiratory: normal respiratory effort, lungs clear to auscultation Cardiovascular: Rate/Rhythm: regular rate Gastrointestinal (Abdomen): normal bowel sounds, soft, nontender, no hepatosplenomegaly Results & Data Vital Signs (Past 12 Hours) Vital Signs Temp Pulse Pulse Pulse Resp BP Pulse Ox 02/11/23 08:05 36.5 C 54 L 16 133/70 93 02/11/23 04:00 36.7 C 68 18 131/76 94 02/10/23 23:24 36.5 C 58 L 18 132/73 93 02/10/23 23:24 56 L O2 Del Method 02/11/23 08:05 Room Air 02/11/23 04:00 Room Air 02/10/23 23:24 Room Air 02/10/23 23:24 Laboratory Results 02/11/23 Range/Units 06:10 WBC 6.68 (4.8-10.8) K/ul RBC 2.98 L (4.20-5.40) M/uL Hgb 8.8 L (12.0-16.0) g/dl Hct 27.8 L (37.0-47.0) % MCV 93.3 (80.0-100.0) fL MCH 29.5 (25.0-34.0) pg MCHC 31.7 L (32.0-36.0) g/dL RDW Std Deviation 49.1 H (36.4-46.3) fL RDW Coeff of Allan 14.6 H (11.5-14.5) % Plt Count 241 (130-400) K/uL MPV 10.5 (9.4-12.4) fL Immature Gran % (Auto) 0.3 % Neut % (Auto) 49.9 % Lymph % (Auto) 33.5 % Swain % (Auto) 10.8 % Eos % (Auto) 4.6 % Baso % (Auto) 0.9 % Neut # (Auto) 3.33 (1.40-6.50) K/uL Lymph # (Auto) 2.24 (1.20-3.40) K/uL Swain # (Auto) 0.72 H (0.11-0.59) K/uL Eos # (Auto) 0.31 (0.00-0.50) K/uL Baso # (Auto) 0.06 (0.00-0.20) K/uL Immature Gran # (Auto) 0.02 (0.01-0.20) K/uL Sodium 140 (136-145) mmol/L Potassium 4.0 (3.5-5.1) mmol/L Chloride 106 (98-107) mmol/L Carbon Dioxide 30 (21-32) mmol/L Anion Gap 4 (3-11) BUN 12 (6-23) mg/dl Creatinine 0.95 (0.6-1.2) mg/dl Est Cr Clr Drug Dosing 35.6 ml/min Est GFR ( Amer) 65.6 ml/min Est GFR (Non-Af Amer) 56.6 ml/min BUN/Creatinine Ratio 12.6 (10-20) Glucose 93 (70-99(Fasting)) mg/dl Calcium 8.6 (8.6-10.3) mg/dl Ionized Calcium 1.24 (1.12-1.32) mmol/L Phosphorus 3.7 (2.5-4.9) mg/dl Magnesium 1.7 (1.7-2.4) mg/dl Total Bilirubin 0.7 D (0.2-1.0) mg/dl AST 19 (13-39) U/L ALT 16 (7-52) U/L Alkaline Phosphatase 100 (34-104) U/L Total Protein 5.6 L (6.0-8.3) gm/dl Albumin 3.1 L (3.4-5.0) gm/dl Globulin 2.5 (2.5-4.0) gm/dl Albumin/Globulin Ratio 1.2 (0.9-2) (1) GI bleed GI bleed type/associated pathology: melena Qualified Code(s): K92.1 - Melena
--- NOTE | 2023-02-11 10:22 | Hospitalist Progress Note ---
Date of Service February 11, 2023 Assessment & Plan (1) Hypothyroidism: (2) GI bleed: (3) Melena: Plan Pt is an 82yoF with PMHx significant for villous adenoma s/p Whipple procedure in 2009, hypothyroidism, Hx of GI bleed admitted with episodes of melena for 1 day. GI Bleed Melena Positive FOBT Present on admission for multiple episodes of bloody stools Last colonoscopy in 2020- noted diverticulosis and internal hemorrhoids CT abd/pelvis showed no acute infectious or inflammatory findings in the abdomen or pelvis. Hgb stable at 9-10, today 8.8, pt vocalizing she wants definitive treatment today. GI reconsulted -planning for EGD on Tue -recommending clears on Sat and Sun -Golytely to start on Tuesday @ 3pm -NPO after midnight on Tuesday into Tuesday PPI drip switched to PO pantoprazole BID, switched back to ppi drip on 02/11 Continue to monitor hgb and transfuse as needed Abdominal Aneurysm Noted on CT abd/pelvis on aorta and R common iliac artery Pt follows with vascular outpt Continue to monitor outpt Eye Dryness/swelling Ordered prn artificial tears Outpt followup Hypothyroidism- continue home levothyroxine CODE STATUS: DNR/DNI DVT prophylaxis: SCDs in setting of possible GI bleed Diet: to be on clears over the weekend Disposition: PT/OT ordered- not evaluating pt Admission and Anticipated Discharge Date Admission Date: February 07, 2023 Subjective pt seen in the AM, noted further episodes of bloody BMs at that time. Per nursing it was maroon colored. States that eye drops did help her eye itching. Stating today that she wants the bleeding taken care of. GI contacted and saw her once more. Review of Systems Review of Systems: All systems reviewed & are unremarkable except as noted in Subjective Physical Exam Physical Exam: General: Alert, oriented. No acute distress Skin: No noted rashes or bruises Psych: Appropriate mood and affect Neuro: No gross deficits while laying in bed HEENT: NC/AT Chest: Nontender to palpation. CV: RRR, blowing murmur Resp: Breath sounds clear bilaterally, no increased effort of breathing. Abdomen: Soft, nontender, nondistended. Extremities: No edema in lower extremities bilaterally. Results & Data Results & Data Vital Signs (Past 12 Hours) Vital Signs Temp Pulse Pulse Pulse Resp BP Pulse Ox 02/11/23 08:05 36.5 C 54 L 16 133/70 93 02/11/23 07:30 54 L 02/11/23 04:00 36.7 C 68 18 131/76 94 02/10/23 23:24 36.5 C 58 L 18 132/73 93 02/10/23 23:24 56 L O2 Del Method 02/11/23 08:05 Room Air 02/11/23 07:30 02/11/23 04:00 Room Air 02/10/23 23:24 Room Air 02/10/23 23:24 (2) GI bleed GI bleed type/associated pathology: melena Qualified Code(s): K92.1 - Melena
[2023-02-11] MEDS: PANTOprazole 40 MG in DEXTROSE 5% MINI-B 100 ML IV SCH ×3 (10:29→20:20)
[2023-02-12] MEDS: PANTOprazole 40 MG in DEXTROSE 5% MINI-B 100 ML IV SCH ×5 (01:25→19:41)
[2023-02-12] MEDS: LEVOTHYROXINE SODIUM 50 MCG TABLET PO SCH (05:50)
[2023-02-12 07:14] LABS: Basophils # (auto) 0.05 K/uL (0.00-0.20); Basophils % (auto) 0.7 %; Eosinophils # (auto) 0.38 K/uL (0.00-0.50); Eosinophils % (auto) 5.2 %; Hematocrit (blood only) 26.8 % (37.0-47.0); Hemoglobin 9.1 g/dl (12.0-16.0); Immature Granulocytes # (auto) 0.02 K/uL (0.01-0.20); Immature Granulocytes % (auto) 0.3 %; Lymphocytes # (auto) 2.17 K/uL (1.20-3.40); Lymphocytes % (auto) 29.9 %; Mean Corpuscular Hemoglobin 30.5 pg (25.0-34.0); Mean Corpuscular Volume 89.9 fL (80.0-100.0); Mean Platelet Volume 10.4 fL (9.4-12.4); Monocytes # (auto) 0.87 K/uL (0.11-0.59); Neutrophils # (auto) 3.76 K/uL (1.40-6.50); Neutrophils % (auto) 51.9 %; Platelet Count 256 K/uL (130-400); RDW Coefficient of Variation 14.7 % (11.5-14.5); RDW Standard Deviation 47.7 fL (36.4-46.3); Red Blood Count 2.98 M/uL (4.20-5.40); White Blood Count 7.25 K/ul (4.8-10.8)
[2023-02-12 07:49] LABS: Albumin Globulin Ratio 1.2 (0.9-2); Albumin Level 3.1 gm/dl (3.4-5.0); BUN Creatinine Ratio 14.4 (10-20); Bilirubin,Total 0.7 mg/dl (0.2-1.0); Calcium 8.7 mg/dl (8.6-10.3); Creatinine Clr Calc Pharmacy 32.6 ml/min; Est GFR (African American) 58.8 ml/min; Est GFR (Non-African American) 50.7 ml/min; Globulin 2.6 gm/dl (2.5-4.0); Magnesium 1.8 mg/dl (1.7-2.4); Potassium 3.8 mmol/L (3.5-5.1); Total Protein 5.7 gm/dl (6.0-8.3)
--- NOTE | 2023-02-12 13:53 | Hospitalist Progress Note ---
Date of Service February 12, 2023 Assessment & Plan (1) GI bleed: (2) Hypothyroidism: (3) Melena: (4) Abdominal aneurysm: (5) Eye abnormality: Plan Pt is an 82yoF with PMHx significant for villous adenoma s/p Whipple procedure in 2009, hypothyroidism, Hx of GI bleed admitted with episodes of melena for 1 day. GI Bleed Melena Positive FOBT Present on admission for multiple episodes of bloody stools Last colonoscopy in 2020- noted diverticulosis and internal hemorrhoids CT abd/pelvis showed no acute infectious or inflammatory findings in the abdomen or pelvis. Hgb stable at 9-10, today 9.1, pt vocalizing she wants definitive treatment. GI reconsulted -planning for EGD on Tue -recommending clears on Sat and Sun -Golytely to start on Tuesday @ 3pm -NPO after midnight on Tuesday into Tuesday PPI drip switched to PO pantoprazole BID, switched back to ppi drip on 02/11 Continue to monitor hgb and transfuse as needed 02/12- continue ppi drip, monitor h/h. Due for procedure on 02/14, transfuse as needed before then. Started on clears today. Abdominal Aneurysm Noted on CT abd/pelvis on aorta and R common iliac artery Pt follows with vascular outpt Continue to monitor outpt Eye Dryness/swelling/infection Ordered prn artificial tears started on polytrim eyedrops on 02/12 Outpt followup Hypothyroidism- continue home levothyroxine CODE STATUS: DNR/DNI DVT prophylaxis: SCDs in setting of possible GI bleed Diet: on clears Disposition: PT/OT ordered- recommending no further eval for pt Admission and Anticipated Discharge Date Admission Date: February 07, 2023 Subjective Pt still having multiple episodes of bloody stool. Also states that eye is now having discharge. Otherwise denies acute concerns. Review of Systems Review of Systems: All systems reviewed & are unremarkable except as noted in Subjective Physical Exam Physical Exam: General: Alert, oriented. No acute distress Skin: No noted rashes or bruises Psych: Appropriate mood and affect Neuro: No gross deficits while laying in bed HEENT: NC/AT Chest: Nontender to palpation. CV: RRR, blowing murmur Resp: Breath sounds clear bilaterally, no increased effort of breathing. Abdomen: Soft, nontender, nondistended. Extremities: No edema in lower extremities bilaterally. Results & Data Results & Data Vital Signs (Past 12 Hours) Vital Signs Temp Pulse Pulse Resp BP Pulse Ox O2 Del Method 02/12/23 11:32 36.4 C L 63 16 114/74 97 Room Air 02/12/23 08:02 36.5 C 54 L 16 123/66 98 Room Air 02/12/23 07:55 Room Air 02/12/23 07:43 56 L 02/12/23 02:57 36.5 C 48 L 16 114/61 94 Room Air (1) GI bleed GI bleed type/associated pathology: melena Qualified Code(s): K92.1 - Melena
[2023-02-12] MEDS: TRIMETHOPRIM/POLYMYXIN B OP SCH ×2 (17:46→19:42)
[2023-02-13] MEDS: PANTOprazole 40 MG in DEXTROSE 5% MINI-B 100 ML IV SCH ×5 (00:46→22:22)
[2023-02-13] MEDS: LEVOTHYROXINE SODIUM 50 MCG TABLET PO SCH (05:16)
[2023-02-13 06:37] LABS: Basophils # (auto) 0.08 K/uL (0.00-0.20); Basophils % (auto) 1.1 %; Eosinophils # (auto) 0.47 K/uL (0.00-0.50); Eosinophils % (auto) 6.4 %; Hematocrit (blood only) 26.8 % (37.0-47.0); Hemoglobin 8.8 g/dl (12.0-16.0); Immature Granulocytes # (auto) 0.02 K/uL (0.01-0.20); Immature Granulocytes % (auto) 0.3 %; Lymphocytes # (auto) 2.51 K/uL (1.20-3.40); Lymphocytes % (auto) 34.1 %; Mean Corpuscular Hgb Conc 32.8 g/dL (32.0-36.0); Mean Corpuscular Volume 91.5 fL (80.0-100.0); Mean Platelet Volume 10.1 fL (9.4-12.4); Monocytes % (auto) 13.6 %; Neutrophils # (auto) 3.29 K/uL (1.40-6.50); Neutrophils % (auto) 44.5 %; Platelet Count 254 K/uL (130-400); RDW Coefficient of Variation 14.5 % (11.5-14.5); RDW Standard Deviation 48.4 fL (36.4-46.3); Red Blood Count 2.93 M/uL (4.20-5.40); White Blood Count 7.37 K/ul (4.8-10.8)
[2023-02-13 07:00] LABS: Albumin Globulin Ratio 1.2 (0.9-2); BUN Creatinine Ratio 14.4 (10-20); Bilirubin,Total 0.8 mg/dl (0.2-1.0); Calcium 8.5 mg/dl (8.6-10.3); Creatinine Clr Calc Pharmacy 32.6 ml/min; Est GFR (African American) 58.8 ml/min; Est GFR (Non-African American) 50.7 ml/min; Globulin 2.5 gm/dl (2.5-4.0); Magnesium 1.8 mg/dl (1.7-2.4); Phosphorus 4.3 mg/dl (2.5-4.9); Potassium 3.5 mmol/L (3.5-5.1); Total Protein 5.5 gm/dl (6.0-8.3)
[2023-02-13] MEDS: TRIMETHOPRIM/POLYMYXIN B OP SCH ×4 (08:16→20:05)
--- NOTE | 2023-02-13 10:55 | Hospitalist Progress Note ---
Date of Service February 13, 2023 Assessment & Plan (1) GI bleed: (2) Hypothyroidism: (3) Melena: (4) Abdominal aneurysm: (5) Eye abnormality: Plan Pt is an 82yoF with PMHx significant for villous adenoma s/p Whipple procedure in 2009, hypothyroidism, Hx of GI bleed admitted with episodes of melena for 1 day. GI Bleed Melena Positive FOBT Present on admission for multiple episodes of bloody stools Last colonoscopy in 2020- noted diverticulosis and internal hemorrhoids CT abd/pelvis showed no acute infectious or inflammatory findings in the abdomen or pelvis. Hgb stable at 9-10, today 9.1, pt vocalizing she wants definitive treatment. GI reconsulted -planning for EGD on Tue -recommending clears on Sat and Sun -Golytely to start on Tuesday @ 3pm -NPO after midnight on Tuesday into Tuesday PPI drip switched to PO pantoprazole BID, switched back to ppi drip on 02/11 Continue to monitor hgb and transfuse as needed 02/12- continue ppi drip, monitor h/h. Due for procedure on 02/14, transfuse as needed before then. Started on clears today. 02/13-hgb stable, moved from 9.1 to 8.8. Due for procedure on 02/14, transfuse as needed before then. Continue ppi drip and clears today. Abdominal Aneurysm Noted on CT abd/pelvis on aorta and R common iliac artery Pt follows with vascular outpt Continue to monitor outpt Eye Dryness/swelling/infection Ordered prn artificial tears started on polytrim eyedrops on 02/12, continue Outpt followup Hypothyroidism- continue home levothyroxine CODE STATUS: DNR/DNI DVT prophylaxis: SCDs in setting of possible GI bleed Diet: on clears Disposition: PT/OT ordered- recommending no further eval for pt Admission and Anticipated Discharge Date Admission Date: February 07, 2023 Subjective Pt still having episodes of bloody stool. R eye still having discharge. Denies acute concerns Was walking the halls. Tearful when discussing her course. Review of Systems Review of Systems: All systems reviewed & are unremarkable except as noted in Subjective Physical Exam Physical Exam: General: Alert, oriented. No acute distress Skin: No noted rashes or bruises Psych: Appropriate mood and affect Neuro: No gross deficits while laying in bed HEENT: NC/AT Chest: Nontender to palpation. CV: RRR, blowing murmur Resp: Breath sounds clear bilaterally, no increased effort of breathing. Abdomen: Soft, nontender, nondistended. Extremities: No edema in lower extremities bilaterally. Results & Data Results & Data Vital Signs (Past 12 Hours) Vital Signs Temp Pulse Resp BP BP Pulse Ox O2 Del Method 02/13/23 07:43 36.4 C L 54 L 16 120/69 95 Room Air 02/13/23 03:10 36.5 C 56 L 16 122/63 91 Room Air (1) GI bleed GI bleed type/associated pathology: melena Qualified Code(s): K92.1 - Melena
[2023-02-13] MEDS ORDERED: LAVAGE SOLUTION 4000ML PO SCH (15:00)
[2023-02-14] MEDS: PANTOprazole 40 MG in DEXTROSE 5% MINI-B 100 ML IV SCH ×3 (03:14→13:52)
[2023-02-14] MEDS: LEVOTHYROXINE SODIUM 50 MCG TABLET PO SCH (04:20)
[2023-02-14 06:07] LABS: Basophils # (auto) 0.06 K/uL (0.00-0.20); Basophils % (auto) 0.8 %; Eosinophils # (auto) 0.55 K/uL (0.00-0.50); Eosinophils % (auto) 7.1 %; Hemoglobin 8.6 g/dl (12.0-16.0); Immature Granulocytes # (auto) 0.02 K/uL (0.01-0.20); Immature Granulocytes % (auto) 0.3 %; Lymphocytes # (auto) 2.53 K/uL (1.20-3.40); Lymphocytes % (auto) 32.5 %; Mean Corpuscular Hemoglobin 30.3 pg (25.0-34.0); Mean Corpuscular Hgb Conc 33.1 g/dL (32.0-36.0); Mean Corpuscular Volume 91.5 fL (80.0-100.0); Mean Platelet Volume 10.2 fL (9.4-12.4); Monocytes # (auto) 1.09 K/uL (0.11-0.59); Neutrophils # (auto) 3.53 K/uL (1.40-6.50); Neutrophils % (auto) 45.3 %; Platelet Count 253 K/uL (130-400); RDW Coefficient of Variation 14.6 % (11.5-14.5); RDW Standard Deviation 48.6 fL (36.4-46.3); Red Blood Count 2.84 M/uL (4.20-5.40); White Blood Count 7.78 K/ul (4.8-10.8)
[2023-02-14 06:33] LABS: Albumin Globulin Ratio 1.2 (0.9-2); Albumin Level 2.9 gm/dl (3.4-5.0); BUN Creatinine Ratio 12.9 (10-20); Bilirubin,Total 0.9 mg/dl (0.2-1.0); Calcium 8.2 mg/dl (8.6-10.3); Creatinine Clr Calc Pharmacy 36.4 ml/min; Est GFR (African American) 67.3 ml/min; Globulin 2.4 gm/dl (2.5-4.0); Magnesium 1.7 mg/dl (1.7-2.4); Phosphorus 3.3 mg/dl (2.5-4.9); Potassium 3.6 mmol/L (3.5-5.1); Total Protein 5.3 gm/dl (6.0-8.3)
[2023-02-14] MEDS: TRIMETHOPRIM/POLYMYXIN B OP SCH ×4 (08:29→19:59)
--- NOTE | 2023-02-14 10:29 | Hospitalist Progress Note ---
Date of Service February 14, 2023 Assessment & Plan (1) GI bleed: (2) Hypothyroidism: (3) Melena: (4) Abdominal aneurysm: (5) Eye abnormality: Plan Pt is an 82yoF with PMHx significant for villous adenoma s/p Whipple procedure in 2009, hypothyroidism, Hx of GI bleed admitted with episodes of melena for 1 day. GI Bleed Melena Positive FOBT Present on admission for multiple episodes of bloody stools Last colonoscopy in 2020- noted diverticulosis and internal hemorrhoids CT abd/pelvis showed no acute infectious or inflammatory findings in the abdomen or pelvis. Hgb stable at 9-10, today 9.1, pt vocalizing she wants definitive treatment. GI reconsulted -planning for EGD on Tue -recommending clears on Sat and Sun -Golytely to start on Tuesday @ 3pm -NPO after midnight on Tuesday into Tuesday PPI drip switched to PO pantoprazole BID, switched back to ppi drip on 02/11 Continue to monitor hgb and transfuse as needed 02/12- continue ppi drip, monitor h/h. Due for procedure on 02/14, transfuse as needed before then. Started on clears today. 02/13-hgb stable, moved from 9.1 to 8.8. Due for procedure on 02/14, transfuse as needed before then. Continue ppi drip and clears today. 02/14- EGD and colonoscopy did not note a source of the bleeding. Did note internal hemorrhoids and diverticulosis. PPI drip d/c, pantoprazole 40mg BID, d/c in AM if h/h remains stable. GI recommending outpt video capsule for further evaluation. Abdominal Aneurysm Noted on CT abd/pelvis on aorta and R common iliac artery Pt follows with vascular outpt Continue to monitor outpt Eye Dryness/swelling/infection Ordered prn artificial tears started on polytrim eyedrops on 02/12, continue Outpt followup Hypothyroidism- continue home levothyroxine CODE STATUS: DNR/DNI DVT prophylaxis: SCDs in setting of possible GI bleed Diet: on clears Disposition: PT/OT ordered- recommending no further eval for pt Admission and Anticipated Discharge Date Admission Date: February 07, 2023 Subjective Pt seen in the AM. Was anxious about her procedure, concerned it would be done later in the day. Review of Systems Review of Systems: All systems reviewed & are unremarkable except as noted in Subjective Physical Exam Physical Exam: General: Alert, oriented. No acute distress Skin: No noted rashes or bruises Psych: Appropriate mood and affect Neuro: No gross deficits while laying in bed HEENT: NC/AT Chest: Nontender to palpation. CV: RRR, blowing murmur Resp: Breath sounds clear bilaterally, no increased effort of breathing. Abdomen: Soft, nontender, nondistended. Extremities: No edema in lower extremities bilaterally. Results & Data Results & Data Vital Signs (Past 12 Hours) Vital Signs Temp Pulse Pulse Resp BP BP Pulse Ox 02/14/23 07:35 36.3 C L 74 18 140/71 95 02/14/23 03:03 36.4 C L 57 L 16 118/54 L 93 02/13/23 23:05 36.6 C 83 16 138/86 95 02/13/23 22:30 78 O2 Del Method 02/14/23 07:35 Room Air 02/14/23 03:03 Room Air 02/13/23 23:05 Room Air 02/13/23 22:30 (1) GI bleed GI bleed type/associated pathology: melena Qualified Code(s): K92.1 - Melena
--- NOTE | 2023-02-14 10:47 | Anesthesiology Consultation ---
Date of Service February 14, 2023 Assessment & Plan Chart Review Chart Review: Acceptable Risk for Surgery, Patient NOT seen in Pre Admission Testing and real estate professional initiated Consults Requested none ASA ASA3 Proposed Anesthesia Anesthesia Type: MAC Risk / Benefits Reviewed With: PT / POA / Parent / Guardian, Accepts Plan and Informed Consent Obtained History Surgery Operation Date: 02/14/23 16:30 Proposed Procedures p Colonoscopy EGD Dr Ireland - [place] Ireland, DO Height/Weight Height: 5 ft 1 in Weight: 50.5 kg Allergies Allergy/AdvReac Type Severity Reaction Status Date / Time aspirin Allergy Bleeding Verified 02/14/23 10:21 tendency morphine Allergy Vomiting Verified 02/14/23 10:21 Medications Home Medications Medication Instructions Recorded Confirmed Last Taken ascorbic acid (vitamin C) 500 mg 500 mg PO QAM 04/28/21 02/07/23 04/28/21 tablet calcium carb 300 mg-D3 20 mcg-mag 1 tab PO BID 04/28/21 02/07/23 04/28/21 ox 25 mg-flight engineer helicopter 0.5 hf-tyti-hbih tablet (Caltrate-D3 Plus Minerals) levothyroxine 50 mcg tablet 50 mcg PO QDB 04/28/21 02/07/23 04/28/21 multivitamin 1 tab PO QDL 04/28/21 02/07/23 04/27/21 omega 4-vuo-kyy-fish oil 1,200 mg 1 cap PO DAILY@1800 04/28/21 02/07/23 04/27/21 (144 mg-216 mg) capsule (Fish Oil) Active Medications Generic Name Dose Route Start Last Admin Trade Name Thomasq PRN Reason Stop Dose Admin Pantoprazole Sodium 40 mg/ 100 mls @ 20 mls/hr 02/11/23 10:15 02/14/23 10:06 Dextrose IV 03/13/23 10:14 0 mg/hr Q5H QUINN 0 mls/hr Infusion 8 MG/HR Levothyroxine Sodium 50 mcg 02/08/23 06:30 02/14/23 04:20 Levothyroxine Sodium 50 Mcg Tablet PO 03/10/23 06:29 50 mcg DAILYBB QUINN Administration Ondansetron HCl 4 mg 02/09/23 15:22 02/09/23 15:27 Ondansetron Inj 2 Mg/Ml 2 Ml Vial IV 03/11/23 15:21 4 mg Q6H PRN Administration Nausea And Vomiting Polymyxin/Trimethoprim Sulfate 1 drops 02/12/23 17:00 02/14/23 08:29 Trimethoprim/Polymyxin B OP 02/19/23 16:59 1 drops QID QUINN Administration NPO Date Last Intake of Fluids: 02/13/23 Time Last Intake of Fluids: 11:30 Date Last Intake of Solids: 02/12/23 Time Last Intake of Solids: 18:00 Past Medical History Medical History Hypothyroidism Hypertension Exercise / Class Metabolic Activity II 4-5 Yardwork/Stairs/Walk up hill Past Surgical History Surgical History No pertinent past surgical history Past Anesthesia History No Hx of Anesthesia Complications and No Family Hx of Anesthesia Complications History of PONV No Hx of PONV and No Hx of Motion Sickness Social History Smoking Status: Never smoker Do You Dip or Chew Tobacco: No Hx Alcohol Use: No Hx Substance Use: No substance use type: does not use Physical Exam Vital Signs Last Vital Signs Temp 36.7 C 02/14/23 10:25 Pulse 55 L 02/14/23 10:25 Resp 16 02/14/23 10:25 BP 162/84 H 02/14/23 10:25 Pulse Ox 96 02/14/23 10:25 O2 Del Method Room Air 02/14/23 10:25 O2 Flow Rate 2 02/08/23 07:50 Constitutional no acute distress ENMT Mouth: + dentures and + edentulous Thyromental Distance: > or= 3.5 Finger Breadths Mallampati Class: II Neck normal visual inspection and trachea midline; neck extension not limited Respiratory normal respiratory effort; no respiratory distress Auscultation: lungs clear to auscultation bilaterally; no crackles, no rhonchi and no wheezes Cardiovascular Rate/Rhythm: regular rate and regular rhythm Heart Sounds: + murmur; no gallop and no cardiac rub Musculoskeletal Head/Neck/Chest: full ROM of neck Neurologic moves all extremities and awake Psychiatric Orientation: alert and oriented x 3 Testing Laboratory Results 02/14/23 05:48 02/14/23 05:48 PT 11.7 Seconds (9.0-12.0) 02/07/23 10:10 INR 1.1 (0.9-1.1) 02/07/23 10:10 APTT 26 Seconds (21-31) 02/07/23 10:10
--- NOTE | 2023-02-14 10:52 | History & Physical Report ---
Date of Service February 14, 2023 Assessment & Plan (1) GI bleed: Plan: EGD/colo today (2) Melena: Admission and Anticipated Discharge Date Admission Date: February 07, 2023 History of Present Illness Chief Complaint: rectal bleeding melena Primary Care Provider: Azael Thrasher MD Allergies Allergy/AdvReac Type Severity Reaction Status Date / Time aspirin Allergy Bleeding Verified 02/14/23 10:21 tendency morphine Allergy Vomiting Verified 02/14/23 10:21 Home Medications Medication Instructions Recorded Confirmed Type ascorbic acid (vitamin C) 500 mg 500 mg PO QAM 04/28/21 02/07/23 History tablet calcium carb 300 mg-D3 20 mcg-mag 1 tab PO BID 04/28/21 02/07/23 History ox 25 mg-helicopter specialist 0.5 kw-rwqe-xhbs tablet (Caltrate-D3 Plus Minerals) levothyroxine 50 mcg tablet 50 mcg PO QDB 04/28/21 02/07/23 History multivitamin 1 tab PO QDL 04/28/21 02/07/23 History omega 9-dgs-syf-fish oil 1,200 mg 1 cap PO DAILY@1800 04/28/21 02/07/23 History (144 mg-216 mg) capsule (Fish Oil) Past Med/Surg History Medical History Hypothyroidism Hypertension Surgical History No pertinent past surgical history Social History Smoking Status: Never smoker Second Hand Exposure: No; Do You Dip or Chew Tobacco: No; Tobacco Cessation Education Requested by Patient: No Hx Alcohol Use: No Hx Substance Use: No Preferred Language: Amharic Communication Ability: Effective Contract Technician Required: No Beliefs That Will Affect Care: None Current Living Situation: Family Current Living Situation Comment: Lives with daughter and son in law Other Information That Helps Us Care for You: No Feels Safe at Home: Yes Safety Concerns: Feels Safe At This Time Assistive Devices: Glasses Results & Data Vital Signs (Past 12 Hours) Vital Signs Temp Pulse Resp BP BP Pulse Ox O2 Del Method 02/14/23 10:25 36.7 C 55 L 16 162/84 H 96 Room Air 02/14/23 07:35 36.3 C L 74 18 140/71 95 Room Air 02/14/23 03:03 36.4 C L 57 L 16 118/54 L 93 Room Air 02/13/23 23:05 36.6 C 83 16 138/86 95 Room Air (1) GI bleed GI bleed type/associated pathology: melena Qualified Code(s): K92.1 - Melena
[2023-02-14] MEDS ORDERED: PROPOFOL IV EMULSION 10 MG/ML 20 ML VIAL IV ONE (11:15)
[2023-02-14] MEDS ORDERED: LIDOCAINE 2% 2 ML VIAL/AMP(20MG/ML) INFIL ONE (11:15)
--- NOTE | 2023-02-14 11:48 | GI REPORT ---
Patient Name: Lamin Woo Procedure Date: 02/14/2023 11:14 AM Date of : 1940 Admit Type: Inpatient Age: 82 Gender: Female Attending MD: [place] Ireland DO, Procedure: Upper GI endoscopy Providers: [place] Ireland DO Referring MD: Pratima Hernandez M.d. Indications: Melena Medicines: Propofol per Anesthesia Complications: No immediate complications. Estimated blood loss: None. Estimated Blood Loss: Estimated blood loss: none. Procedure: Pre-Anesthesia Assessment: - Prior to the procedure, a History and Physical was performed, and patient medications, allergies and sensitivities were reviewed. The patient's tolerance of previous anesthesia was reviewed. - The risks and benefits of the procedure and the sedation options and risks were discussed with the patient. All questions were answered and informed consent was obtained. - Patient identification and proposed procedure were verified prior to the procedure by the physician and the nurse. The procedure was verified in the pre-procedure area in the procedure room. - Mental Status Examination: alert and oriented. Airway Examination: normal oropharyngeal airway and neck mobility. Respiratory Examination: clear to auscultation. CV Examination: normal. Abdominal Examination: bowel sounds present, abdomen soft and non-tender, no masses or organomegaly noted. - ASA Grade Assessment: III - A patient with severe systemic disease. After obtaining informed consent, the endoscope was passed under direct vision. Throughout the procedure, the patient's blood pressure, pulse, and oxygen saturations were monitored continuously. The Colonoscope was introduced through the mouth, and advanced to the jejunum. The upper GI endoscopy was accomplished without difficulty. The patient tolerated the procedure well. Findings: The esophagus was normal. Evidence of a classic Whipple was found in the gastric body. This was characterized by healthy appearing mucosa. The examined jejunum was normal. Impression: - Normal esophagus. - A Whipple was found, characterized by healthy appearing mucosa. - Normal examined jejunum. - No specimens collected. Recommendation: - Perform a colonoscopy today. Lelia Ayala DO 02/14/2023 11:47:34 AM This report has been signed electronically. Note Initiated On: 02/14/2023 11:14 AM Number of Addenda: 0 I attest to the content of the Intraoperative Record and orders documented therein, exceptions below {[id number]}
--- NOTE | 2023-02-14 11:50 | GI REPORT ---
Patient Name: Lamin Woo Procedure Date: 02/14/2023 11:15 AM Date of : 1940 Admit Type: Inpatient Age: 82 Gender: Female Attending MD: Argentina Ireland DO, Procedure: Colonoscopy Providers: [place] Ireland DO Referring MD: Pratima Hernandez M.d. Indications: Last colonoscopy within the past 5 years, Melena, Rectal bleeding Medicines: Propofol per Anesthesia Complications: No immediate complications. Estimated blood loss: None. Estimated Blood Loss: Estimated blood loss: none. Procedure: Pre-Anesthesia Assessment: - Prior to the procedure, a History and Physical was performed, and patient medications, allergies and sensitivities were reviewed. The patient's tolerance of previous anesthesia was reviewed. - The risks and benefits of the procedure and the sedation options and risks were discussed with the patient. All questions were answered and informed consent was obtained. - Patient identification and proposed procedure were verified prior to the procedure by the physician and the nurse. The procedure was verified in the pre-procedure area in the procedure room. - Mental Status Examination: alert and oriented. Airway Examination: normal oropharyngeal airway and neck mobility. Respiratory Examination: clear to auscultation. CV Examination: normal. Abdominal Examination: bowel sounds present, abdomen soft and non-tender, no masses or organomegaly noted. - ASA Grade Assessment: III - A patient with severe systemic disease. After I obtained informed consent, the scope was passed under direct vision. Throughout the procedure, the patient's blood pressure, pulse, and oxygen saturations were monitored continuously. The Scope was introduced through the anus and advanced to the terminal ileum. The colonoscopy was performed without difficulty. The patient tolerated the procedure well. The quality of the bowel preparation was good. Findings: The perianal and digital rectal examinations were normal. Pertinent negatives include normal sphincter tone and no palpable rectal lesions. The terminal ileum appeared normal. Multiple small and large-mouthed diverticula were found in the entire colon. Internal hemorrhoids were found during retroflexion. The hemorrhoids were medium-sized and Grade I (internal hemorrhoids that do not prolapse). Impression: - The examined portion of the ileum was normal. - Diverticulosis in the entire examined colon. - Internal hemorrhoids. - No specimens collected. Recommendation: - Return patient to [facility]. Argentina Ireland D.O. Argentina Ireland, 02/14/2023 11:50:23 AM This report has been signed electronically. Note Initiated On: 02/14/2023 11:15 AM Number of Addenda: 0 I attest to the content of the Intraoperative Record and orders documented therein, exceptions below {[id number]}
--- NOTE | 2023-02-14 14:22 | Anesthesiology Progress Note ---
Date of Service February 14, 2023 Anesthesia Post Procedure Vital Signs Vital Signs: Temp Pulse Pulse Resp BP BP Pulse Ox 02/14/23 12:12 60 16 121/70 96 02/14/23 12:01 57 L 16 129/69 95 02/14/23 11:46 63 16 97/60 L 93 02/14/23 10:25 36.7 C 55 L 16 162/84 H 96 02/14/23 07:35 36.3 C L 74 18 140/71 95 02/14/23 03:03 36.4 C L 57 L 16 118/54 L 93 02/13/23 23:05 36.6 C 83 16 138/86 95 02/13/23 22:30 78 02/13/23 19:35 36.3 C L 61 18 152/86 H 94 02/13/23 15:44 36.5 C 61 16 132/81 93 02/13/23 15:31 55 L O2 Del Method 02/14/23 12:12 Room Air 02/14/23 12:01 Room Air 02/14/23 11:46 Room Air 02/14/23 10:25 Room Air 02/14/23 07:35 Room Air 02/14/23 03:03 Room Air 02/13/23 23:05 Room Air 02/13/23 22:30 02/13/23 19:35 Room Air 02/13/23 15:44 Room Air 02/13/23 15:31 Pain Intensity Abdomen: Pain Intensity: 3 Transfer of Care Handoff Completed per policy Notes Mental Status: alert / awake / arousable and participated in evaluation Patient Amnestic to Procedure: Yes Nausea / Vomiting: adequately controlled Pain: adequately controlled Airway Patency, RR, SpO2: stable & adequate BP & HR: stable & adequate Hydration State: stable & adequate Anesthetic Complications: no major complications apparent
[2023-02-14] MEDS: PANTOprazole 40 MG TAB PO SCH (19:58)
[2023-02-15] MEDS: LEVOTHYROXINE SODIUM 50 MCG TABLET PO SCH (05:58)
[2023-02-15 06:33] LABS: Basophils # (auto) 0.05 K/uL (0.00-0.20); Basophils % (auto) 0.6 %; Eosinophils # (auto) 0.45 K/uL (0.00-0.50); Eosinophils % (auto) 5.6 %; Hematocrit (blood only) 27.8 % (37.0-47.0); Hemoglobin 9.2 g/dl (12.0-16.0); Immature Granulocytes # (auto) 0.02 K/uL (0.01-0.20); Immature Granulocytes % (auto) 0.2 %; Lymphocytes # (auto) 1.89 K/uL (1.20-3.40); Lymphocytes % (auto) 23.4 %; Mean Corpuscular Hemoglobin 30.1 pg (25.0-34.0); Mean Corpuscular Hgb Conc 33.1 g/dL (32.0-36.0); Mean Corpuscular Volume 90.8 fL (80.0-100.0); Mean Platelet Volume 10.3 fL (9.4-12.4); Monocytes # (auto) 0.95 K/uL (0.11-0.59); Monocytes % (auto) 11.8 %; Neutrophils % (auto) 58.4 %; Platelet Count 284 K/uL (130-400); RDW Coefficient of Variation 14.6 % (11.5-14.5); Red Blood Count 3.06 M/uL (4.20-5.40); White Blood Count 8.06 K/ul (4.8-10.8)
[2023-02-15 06:59] LABS: Albumin Globulin Ratio 1.1 (0.9-2); Albumin Level 3.1 gm/dl (3.4-5.0); BUN Creatinine Ratio 11.3 (10-20); Bilirubin,Total 0.7 mg/dl (0.2-1.0); Calcium 8.4 mg/dl (8.6-10.3); Creatinine Clr Calc Pharmacy 25.5 ml/min; Est GFR (African American) 43.6 ml/min; Est GFR (Non-African American) 37.7 ml/min; Globulin 2.7 gm/dl (2.5-4.0); Magnesium 1.8 mg/dl (1.7-2.4); Potassium 4.1 mmol/L (3.5-5.1); Total Protein 5.8 gm/dl (6.0-8.3)
[2023-02-15] MEDS: TRIMETHOPRIM/POLYMYXIN B OP SCH ×2 (07:42→12:04)
[2023-02-15] MEDS: PANTOprazole 40 MG TAB PO SCH (07:43)
[2023-02-15] MEDS ORDERED: SODIUM CHLORIDE 0.9% 1,000 ML IV SCH (09:00)
--- NOTE | 2023-02-15 12:45 | Discharge Summary ---
Discharge Summary Date of Service February 15, 2023 Notes For Next Care Provider Please ensure followup with GI for video capsule. Please closely monitor H/H after discharge Please follow up on R eye itching, consider referral to ophtho Medication Changes From Visit Pantoprazole 40mg BID Polytrim eye drops Admission HPI Per Admitting Provider Pt is an 82yoF with PMHx significant for villous adenoma s/p Whipple procedure in 2009, hypothyroidism, Hx of GI bleed admitted with episodes of melena for the past day. Hx obtained from pt and daughter at bedside as well as EP[facility] records. States that she had about 5 episodes of soft stools with dark red blood mixed in that started this morning. Notes that she has had this happen before, but this time it was not as severe. Chart review notes that she was admitted to [facility] in 2020 for an acute GI bleed requiring transfusion at that time. Had colonoscopy done that noted nonbleeding internal hemorrhoids and diverticulosis. Daughter present states that she lives with her and confirms the bloody stools. Pt states she was dizzy when she woke up this morning, denies SOB, chest pain. Notes she had episodes of nausea as well without emesis, with one episode in the ED. States she takes vitamins and supplements but her only prescribed medication is levothyroxine. Daughter confirms that whipple was done for a Hx of villous adenoma about 10 years ago. Admission Exam Per Admitting Provider General: Alert, oriented. No acute distress Skin: No noted rashes or bruises Psych: Appropriate mood and affect Neuro: No gross deficits while laying in bed HEENT: NC/AT Chest: Nontender to palpation. CV: RRR Resp: Breath sounds clear bilaterally, no increased effort of breathing. Abdomen: Soft, nontender, nondistended. Extremities: No edema in lower extremities bilaterally. Principal Dx & Hospital Course #1 = Principal Diagnosis (1) GI bleed: (2) Hypothyroidism: (3) Melena: (4) Abdominal aneurysm: (5) Eye abnormality: Plan Pt is an 82yoF with PMHx significant for villous adenoma s/p Whipple procedure in 2009, hypothyroidism, Hx of GI bleed admitted with episodes of melena for 1 day. GI Bleed Melena Positive FOBT Present on admission with multiple episodes of bloody stools Last colonoscopy in 2020- noted diverticulosis and internal hemorrhoids CT abd/pelvis showed no acute infectious or inflammatory findings in the abdomen or pelvis. Hgb stable at 9-10, pt vocalized she wanted definitive treatment. GI was reconsulted -had EGD and colonoscopy on 02/14- showed internal hemorrhoids and diverticulosis, no active bleeding. GI recommending outpt video capsule for further evaluation. PPI drip switched to PO pantoprazole BID on discharge. Hgb stable at 9.2 on day of discharge PCP and GI follow up after discharge Abdominal Aneurysm Noted on CT abd/pelvis on aorta and R common iliac artery Pt follows with vascular outpt Continue to monitor outpt PCP and Vascular follow up outpt Eye Dryness/swelling/infection Prn artificial tears while in hospital started on polytrim eyedrops on 02/12, continue, discharged with the same Outpt followup- consider ophtho referral Hypothyroidism- continue home levothyroxine Discharge Exam General: Alert, oriented. No acute distress Skin: No noted rashes or bruises Psych: Appropriate mood and affect Neuro: No gross deficits while laying in bed HEENT: NC/AT Chest: Nontender to palpation. CV: RRR, blowing murmur Resp: Breath sounds clear bilaterally, no increased effort of breathing. Abdomen: Soft, nontender, nondistended. Extremities: No edema in lower extremities bilaterally. Updated Medication List Medication Instructions Recorded Confirmed Type ascorbic acid (vitamin C) 500 mg 500 mg PO QAM 04/28/21 02/07/23 History tablet calcium carb 300 mg-D3 20 mcg-mag 1 tab PO BID 04/28/21 02/07/23 History ox 25 mg-copper roller handler printing 0.5 mn-ogjo-imwd tablet (Caltrate-D3 Plus Minerals) levothyroxine 50 mcg tablet 50 mcg PO QDB 04/28/21 02/07/23 History multivitamin 1 tab PO QDL 04/28/21 02/07/23 History omega 0-zcq-guf-fish oil 1,200 mg 1 cap PO DAILY@1800 04/28/21 02/07/23 History (144 mg-216 mg) capsule (Fish Oil) pantoprazole 40 mg tablet,delayed 40 mg PO BID #60 tabs 02/15/23 Rx release polymyxin B sulfate 10,000 1 drp ophthalmic (eye) QID #10 mL 02/15/23 Rx unit-trimethoprim 1 mg/mL eye drops Hospital Stay Data Consultations 02/07/23 12:38 ED Decision to Admit Stat 02/07/23 16:19 Consult Gastroenterology Routine Procedures Performed Operation Date: 02/14/23 16:30 Actual Procedures p Esophagogastroduodenoscopy - Argentina Ireland DO s Colonoscopy - [place] Ireland DO Diagnostic Imagining Performed 02/07/23 10:59 CT abd pelvis IV con only Stat Abdomen/Pelvis CT 02/07/23 10:59 CT SCAN OF THE ABDOMEN AND PELVIS WITH IV CONTRAST CLINICAL HISTORY: GI bleeding. Hematochezia. COMPARISON STUDY: Abdominal CT dated 12/23/2009. TECHNIQUE: Following the IV administration of 94 cc of Optiray 320, CT scan of the abdomen and pelvis is performed from the lung bases to the proximal femora. Images are reviewed in the axial, sagittal, and coronal planes. IV contrast was administered without complication. A dose lowering technique was utilized adhering to the principles of ALARA. CT DOSE: 373.68 mGy.cm FINDINGS: Lung bases: The patient is status post midline sternotomy. The heart is enlarged and without pericardial effusion. The coronary arteries are densely calcified. There is aneurysmal dilatation of the partially visualized ascending thoracic aorta. This measures up to 4.9 cm in diameter. There is elevation of the left hemidiaphragm with bibasilar scarring/atelectasis. No airspace consolidation typical for pneumonia or pleural effusion is identified. Liver: The contrast-enhanced liver is normal in size, contour, and attenuation. Pneumobilia is noted. There is minimal intrahepatic biliary ductal dilatation. The hepatic veins and portal veins are patent. Gallbladder: Surgically absent. Spleen: Normal in size and attenuation. There are calcified splenic granulomas. Pancreas: There is postsurgical change from a prior Whipple's procedure the pancreatic head is absent. The pancreatic body and tail are markedly atrophic with dilatation of the main pancreatic duct. This measures up to 6 mm in diameter. Large intraductal calculi are seen near the pancreaticojejunostomy on image #100. Adrenal glands: Unremarkable. Kidneys: The contrast enhanced kidneys are normal in size and without hydronephrosis. Foci of cortical scarring are noted in the left kidney. The kidneys enhance symmetrically. Abdominal vasculature: There is advanced atherosclerotic calcification and ectasia of the abdominal aorta. The infrarenal abdominal aorta measures up to 2.8 cm in diameter. 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 Bowel: The distal stomach and duodenum are surgically absent with gastrojejunostomy. No bowel obstruction is seen. A ventral hernia contains a nonobstructed segment of the transverse colon. The appendix is not identified and reported surgically absent. There is mild colonic diverticulosis without CT evidence of acute diverticulitis. Peritoneum: There is no intraperitoneal free air or abdominal ascites. A large fat-containing ventral hernias in the right anterior pelvis on image #156. There is a bowel containing hernia in the upper abdomen seen on image #123. Lymphadenopathy: None. Pelvic viscera: The bladder is distended but otherwise normal as imaged. The uterus is surgically absent. No adnexal lesion is seen. Skeletal structures: The skeletal structures are osteopenic. There are age-indeterminate compression deformities of T11, T12, L1, and L3. Moderate lumbosacral spondylosis is observed. Degenerative sclerosis is noted in the pubic symphysis. No lytic or blastic lesions are seen. IMPRESSION: 1. No acute infectious or inflammatory findings are identified in the abdomen or pelvis. 2. There is postsurgical change consistent with a previous Whipple procedure. 3. There is aneurysmal dilatation of the partially visualized ascending thoracic aorta which measures up to 4.9 cm in diameter. Follow-up with vascular surgery is advised. 4. Cardiomegaly with advanced coronary artery atherosclerosis. 5. The residual pancreatic body and tail are markedly atrophic. Large intraductal calculi are seen above the pancreaticojejunostomy. 6. A ventral hernia contains a nonobstructed segment of the transverse colon. 7. 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 8. Bladder distention. 9. Additional findings as above. ACT 112: Positive. There are findings on this exam that require communication between the performing entity and the patient following Patient Test Result Information Act ([place] Act 112) guidelines. Electronically signed by: Agustin Braga M.D. 02/07/2023 11:47 AM Pending Results Patient Have Any Pending Studies at Discharge: No Discharge Instructions Given to Patient (Per Discharging Provider) Ms. Woo, We suspected that you had an acute GI bleed. You were seen by the product consultant and they performed both an upper endoscopy and lower colonoscopy to look for a source of the bleed. Those evaluations did not show one but did note that you had some internal hemorrhoids. However, gastroent erology is recommending an outpatient video capsule to evaluate the small intestine as there is the possibility that you might have arteriovenous malformations (AVMs) that are bleeding. Please keep close follow up with Gastroenterology after discharge for that. We are discharging you home with the medication pantoprazole 40mg BID to help as well. You developed an eye infection that we suspect is due to your itching. We are discharging you home with antibiotic eye drops to help with that. We strongly recommend that you follow up with an eye doctor after discharge to help you with the underlying eye itching. Your primary care provider can also help with making a referral if needed. We also noticed you had an abdominal aneurysm that your primary care provider can help you with in terms of followup and monitoring. It was a pleasure taking care of you while you were here. Total Time Total Time Spent Total Time Spent (In Minutes): > 30 minutes
== END 2023-02-15 15:51 | disposition home or self-care (01) | DRG 379 ==
LOC: ED 09:43 → EDINP 13:42 → SUATTDRO 13:42 → 2N 21:17